=== PATIENT | female | born 1970 | race Caucasian/White ===

== ENCOUNTER 2020-04-18 12:44 | Outpatient (REF) | payer OTHER, SELFPAY ==
--- NOTE | 2020-04-18 | US_ITS ---
EXAMINATION: US THYROID CLINICAL INFORMATION: Goiter, with cervical lymph node mapping. COMPARISON: CT neck without intravenous contrast dated 05/13/2019. Ultrasound soft tissue head/neck thyroid dated 02/23/2019. TECHNIQUE: Linear transducer ibarra-scale and color Doppler examination with attention to the region of the thyroid. FINDINGS: SIZE: Measurements of the thyroid lobes and nodules are given in sagittal, anteroposterior and transverse dimensions respectively. Right Thyroid Lobe: 4.98 x 1.36 x 1.59 cm, volume 5.63 mL. Previously 5.1 x 1.4 x 1.4 cm, volume 5.2 mL. Parenchyma: The gland echotexture is homogeneous. Thyroid vascularity is normal. Left Thyroid Lobe: 5.05 x 1.14 x 1.65 cm, volume 4.96 mL. Previously 4.7 x 1.4 x 1.6 cm, volume 5.4 mL. Parenchyma: The gland echotexture is homogeneous. Thyroid vascularity is normal. Isthmus: 0.34 cm in maximum AP dimension. Previously 0.35 cm. RIGHT THYROID LOBE: There is 1 nodule seen. 1. Location: Middle. Size: 0.22 x 1.15 x 0.30 cm. Nodule characteristics: Hypoechoic and cystic, smooth margin, peripheral calcification and no intranodular flow. There is an appearance is suggestive of a colloid cyst.. ISTHMUS: No nodules. LEFT THYROID LOBE: There is 1 nodule seen. 1. Location: Superior. Size: 0.27 x 0.17 x 0.17 cm. Nodule characteristics: Hypoechoic and complex cystic, smooth margin, question calcification and no intranodular flow. NODES: No lymphadenopathy is seen in the tissue surrounding the thyroid gland. US/US thyroid IMPRESSION: Small bilateral thyroid cysts. No adenopathy is seen. .
== END 2020-04-18 12:45 | disposition home or self-care (01) ==
LOC: HO.US 12:44
PROVIDERS: PCP Internal Medicine; Visit Provider Internal Medicine
DX: E04.9 Nontoxic goiter, unspecified (principal)
CPT/HCPCS: 76536

== ENCOUNTER → 2020-05-01 10:27 | Outpatient (BNVA) | payer OTHER, SELFPAY | PROVIDERS: PCP Internal Medicine; Referring Provider Internal Medicine; Visit Provider Internal Medicine | DX: Z76.89 Persons encountering health services in other specified circumstances (principal) ==

== ENCOUNTER 2020-05-24 14:20 | Outpatient (REF) | payer OTHER, SELFPAY ==
--- NOTE | 2020-05-24 14:24 | US_ITS ---
EXAMINATION: US SOFT TISSUE OF THE NECK CLINICAL INFORMATION: Localized enlarged lymph nodes. COMPARISON: CT neck 04/18/2020. Ultrasound soft tissue head/neck thyroid dated 02/23/2019. TECHNIQUE: Limited imaging of the neck with attention to the lymph nodes was performed. FINDINGS: RIGHT NECK: 1. Level 1B lymph node measures 1.1 x 0.6 x 0.7 cm. There is normal ultrasound characteristics. 2. Level 2 lymph node measures 2.1 x 0.7 x 1.8 cm. There are normal echogenic medulla and cortex. LEFT NECK: 1. Level 1B lymph node measures 1.0 x 0.6 x 0.9 cm. It has normal ultrasound characteristics. 2. Level 2 lymph node measures 1.7 x 0.7 x 1.2 cm. It has normal ultrasound characteristics. US/US soft tiss head and/or neck IMPRESSION: Normal bilateral neck lymph nodes.
== END 2020-05-24 14:21 | disposition home or self-care (01) ==
LOC: HO.HMGCX 14:20
PROVIDERS: PCP Internal Medicine; Visit Provider Internal Medicine
DX: R59.0 Localized enlarged lymph nodes (principal)
CPT/HCPCS: 76536

== ENCOUNTER → 2020-06-21 11:38 | Outpatient (BNVA) | payer OTHER, SELFPAY | PROVIDERS: PCP Internal Medicine; Visit Provider Internal Medicine ==

== ENCOUNTER 2020-07-06 09:46 | Outpatient (REF) | payer OTHER, SELFPAY ==
[2020-07-06 11:03] LABS: MANUAL DIFF FLAG NO
[2020-07-06 11:07] LABS: Basophils Percent Auto 0.4 % (0-2); Eosinophils Absolute Auto 0.1 X10*3/uL (0.0-0.4); Eosinophils Percent Auto 1.1 % (0-4); Hematocrit 43.2 % (37-47); Hemoglobin 14.6 g/dl (12.0-16.0); Imm Gran Abs Auto 0.03 X10*3/uL (0.00-0.03); Imm Gran Pct Auto 0.4 % (0.0-0.4); Lymphocytes Absolute Auto 1.9 X10*3/uL (1.2-4.9); Lymphocytes Percent Auto 23.2 % (20-40); Mean Corpuscular HGB Conc 33.8 g/dl (31.0-35.0); Mean Corpuscular Hemoglobin 30.7 pg (27.0-33.0); Mean Corpuscular Volume 90.9 fL (80-98); Mean Platelet Volume 10.8 fL (9.4-12.3); Monocytes Absolute Auto 0.5 X10*3/uL (0.1-1.2); Neutrophils Absolute Auto 5.5 X10*3/uL (2.0-8.3); Neutrophils Percent Auto 68.9 % (45-73); Platelet Count 363 X10*3/uL (160-400); Red Blood Count 4.75 X10*6/uL (4.20-5.50); Red Cell Distribution Width 12.2 % (11.0-16.0)
[2020-07-06 11:55] LABS: Alanine Aminotransferase 17 U/L (0-31); Anion Gap 15 (12-20); Aspartate Amino Transferase 16 U/L (5-31); Blood Urea Nitrogen 21 mg/dL (9-16); Calcium 9.2 mg/dL (8.4-10.2); Carbon Dioxide 26 mmol/L (22-29); Chloride 104 mmol/L (96-108); Cholesterol 194 mg/dL; Estimated Glomerular Filt Rate > 60; Glucose Fasting 82 mg/dL (60-99); HDL Cholesterol 64 mg/dL; LDL Cholesterol Calculated 116 mg/dl; Potassium 4.7 mmol/L (3.3-5.1); Sodium 140 mmol/L (135-145); Triglycerides 74 mg/dL
== END 2020-07-06 09:47 | disposition home or self-care (01) ==
LOC: HO.HMGCLDS 09:46
PROVIDERS: PCP Internal Medicine; Visit Provider Internal Medicine
DX: Z00.01 Encounter for general adult medical examination with abnormal findings (principal); R20.0 Anesthesia of skin; R20.2 Paresthesia of skin; E55.9 Vitamin D deficiency, unspecified; R59.0 Localized enlarged lymph nodes
CPT/HCPCS: 36415; 80048; 80061; 84450; 84460; 85025

== ENCOUNTER → 2020-07-13 11:44 | Outpatient (BNVA) | payer OTHER, SELFPAY | PROVIDERS: Visit Provider Internal Medicine Gastroenterology ==

== ENCOUNTER 2020-07-13 14:24 | Emergency (ER) | payer OTHER, SELFPAY ==
[2020-07-13 14:30] VITALS: BP 117/49; PULSE 72; RESP 16; TEMP 36.8; O2SAT 99; BMI 29.2
[2020-07-13 16:20] LABS: MANUAL DIFF FLAG NO
[2020-07-13 16:21] LABS: Basophils Percent Auto 0.5 % (0-2); Eosinophils Absolute Auto 0.1 X10*3/uL (0.0-0.4); Eosinophils Percent Auto 1.2 % (0-4); Hematocrit 40.2 % (37-47); Hemoglobin 13.5 g/dl (12.0-16.0); Imm Gran Abs Auto 0.02 X10*3/uL (0.00-0.03); Imm Gran Pct Auto 0.3 % (0.0-0.4); Lymphocytes Absolute Auto 1.9 X10*3/uL (1.2-4.9); Lymphocytes Percent Auto 24.4 % (20-40); Mean Corpuscular HGB Conc 33.6 g/dl (31.0-35.0); Mean Corpuscular Hemoglobin 30.3 pg (27.0-33.0); Mean Corpuscular Volume 90.1 fL (80-98); Mean Platelet Volume 10.3 fL (9.4-12.3); Monocytes Absolute Auto 0.5 X10*3/uL (0.1-1.2); Monocytes Percent Auto 6.6 % (2-11); Neutrophils Absolute Auto 5.2 X10*3/uL (2.0-8.3); Platelet Count 342 X10*3/uL (160-400); Red Blood Count 4.46 X10*6/uL (4.20-5.50); Red Cell Distribution Width 12.4 % (11.0-16.0); White Blood Count 7.8 X10*3/uL (4.8-10.8)
[2020-07-13 16:53] LABS: Anion Gap 12 (12-20); Blood Urea Nitrogen 15 mg/dL (9-16); Calcium 9.4 mg/dL (8.4-10.2); Carbon Dioxide 28 mmol/L (22-29); Chloride 104 mmol/L (96-108); Creatinine Clr Calc Pharmacy 73.3; Estimated Glomerular Filt Rate > 60; Glucose Random 88 mg/dL (60-115); Lipase 39 U/L (8-78); Potassium 4.2 mmol/L (3.3-5.1); Sodium 140 mmol/L (135-145)
--- NOTE | 2020-07-13 17:39 | ECG_ITS ---
Test Reason : ABDOMINAL PAIN Blood Pressure : / mmHG Vent. Rate : 069 BPM Atrial Rate : 069 BPM P-R Int : 140 ms QRS Dur : 078 ms QT Int : 408 ms P-R-T Axes : 040 011 005 degrees QTc Int : 437 ms Normal sinus rhythm Low voltage QRS Borderline ECG When compared with ECG of 24-APR-2009 19:33, No significant change was found Referred By: Hattie Lanza Electronically Signed By:MAAME MILLARD MD
[2020-07-13 17:41] VITALS: BP 125/64; PULSE 68; RESP 16; O2SAT 100
--- NOTE | 2020-07-13 17:54 | ED_ITS ---
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 No vomiting, diarrhea, urinary symptoms, fevers, chills No chest pain, SOB, dizziness, diaphoresis. Related Data Home Medications Medication Instructions Recorded Confirmed cetirizine 10 mg tablet 10 mg PO BEDTIME 03/13/20 07/13/20 cholecalciferol (vitamin D3) 50 50 mcg PO DAILY 03/13/20 07/13/20 mcg (2,000 unit) tablet fluticasone propionate 50 INTRANASAL 03/13/20 07/13/20 mcg/actuation nasal spray,suspension Previous Rx's Medication Instructions Recorded arm brace #1 ea 06/29/20 meloxicam 7.5 mg tablet 7.5 mg PO DAILY #30 tab 06/29/20 omeprazole 20 mg capsule,delayed 20 mg PO BID 30 Days #60 cap 07/13/20 release simethicone 125 mg chewable tablet 125 mg PO BID-QID PRN 15 Days #60 07/13/20 tab sucralfate [Carafate] 1 g PO TID #30 tab 07/13/20 Allergies Allergy/AdvReac Type Severity Reaction Status Date / Time penicillin V Allergy Unknown anaphylaxis Verified 07/13/20 11:44 Review of Systems Review of Systems Yes all other systems are reviewed and are negative Constitutional: Reports no additional constitutional complaints, Denies body ache(s), Denies chills, Denies fever(s), Denies headache(s) and Denies weakness Eyes: Reports no additional eye complaints and Denies change in vision Reports system reviewed and no additional complaints, except as documented, Denies dizziness, Denies headache(s), Denies nasal congestion, Denies nasal discharge and Denies neck pain Cardiovascular: Reports no additional cardiovascular complaints, Denies chest pain, Denies leg edema and Denies dyspnea Respiratory: Reports no additional respiratory complaints, Denies cough and Denies dyspnea Gastrointestinal: Reports no additional gastrointestinal complaints, Reports abdominal pain, Denies diarrhea, Reports nausea and Denies vomiting Genitourinary: Reports no additional female genitourinary complaints and Denies urinary incontinence Musculoskeletal: Reports no additional musculoskeletal complaints, Denies back pain, Denies arthralgias, Denies joint swelling, Denies neck pain, Denies numbness and Denies tingling Skin/Breast: Reports system reviewed and no additional complaints, except as docu and Denies rash Reports system reviewed and no additional complaints, except as documented, Denies Abnormal speech present, Denies dizziness, Denies headache(s), Denies numbness, Denies tingling and Denies weakness Physical Exam Vital Signs: Vital Signs: Last Vital Signs Temp 98.5 F 07/13/20 20:00 Pulse 68 07/13/20 20:00 Resp 14 07/13/20 20:00 BP 120/70 07/13/20 20:00 Pulse Ox 99 07/13/20 20:00 Body Mass Index 29.2 Const: General: cooperative, healthy appearing, comfortable and no acute distress Orientation/consciousness: patient oriented x3 Limitations: no limitations HENMT: Head: Yes normal to inspection Ears: hearing grossly normal bilaterally General nose exam: Normal external nose present Face and sinus: Yes normal facial exam Mouth: Normal oral and palatal mucosa present Throat: Yes posterior oropharynx normal Eyes: General: appearance normal, both eyes and all related structures Pupils: Equal, round and reactive pupils present Neck: Neck: Yes normal visual inspection Chest: Chest palpation & inspection: normal inspection of the chest Resp: Effort & Inspection: normal respiratory effort Auscultation: clear to auscultation bilaterally Cardio: Rate: regular rate Rhythm: regular rhythm Peripheral pulses: Peripheral pulses 2+ throughout GI: Inspection: Yes normal to inspection Palpation (GI): Soft to palpation and Tenderness to palpation present (GI) (no guarding ) in the epigastrum; with no rebound tenderness Auscultation: normal bowel sounds Back/Spine/Pelvis: Thoracic/Lumbar Spine: thoracic and lumbar spine normal to inspection Skin: General skin exam: no rashes or lesions noted Neuro: General: patient oriented x3, no focal motor deficits and normal sensation to monofilament Cranial nerves: Yes Equal, round and reactive pupils present Cognition (Neuro): normal cognition Speech: No Abnormal speech present Gait exam (Neuro): Normal gait present Motor exam (neuro): 5/5 motor strength present throughout Extrem: General: Yes normal to inspection Course Course Course Narrative: 50 yo female here with epigastric pain since 4am with assoc iated nausea. On exam has some mild/mod epigastric tenderness with no rebound or guarding. Vital signs stable. Will need labs, UA, EKG. To place PIV and give PPI and GI cocktail. 1899-Patient feels much improved. Repeat abdominal exam benign. Well appearing with stable vital signs. Labs unremarkable. UA pending. 1944-UA negative. Patient reports feeling improved. Tolerating p.o.. Likely g astritis. She is already on Prilosec. Will add Carafate and have her follow-up with GI. Reviewed worrisome signs and symptoms and when to return to the emergency department. Comfortable discharge home. MDM - Abdominal Pain MDM Narrative Medical decision making narrative: cholecystitis/cholelithiasis, acs Differential Diagnosis Differential diagnosis: Likely gastritis, pancreatitis and peptic ulcer disease Medical Records Attestation: I reviewed the patient's medical records. Lab Data Attestation: I reviewed the patient's lab results. Result diagrams: 07/13/20 16:12 07/13/20 16:12 Labs: Lab Results 07/13/20 07/13/20 07/13/20 Range/Units 16:12 16:12 16:12 WBC 7.8 (4.8-10.8) X10*3/uL RBC 4.46 (4.20-5.50) X10*6/uL Hgb 13.5 (12.0-16.0) g/dl Hct 40.2 (37-47) % MCV 90.1 (80-98) fL MCH 30.3 (27.0-33.0) pg MCHC 33.6 (31.0-35.0) g/dl RDW 12.4 (11.0-16.0) % Plt Count 342 (160-400) X10*3/uL MPV 10.3 (9.4-12.3) fL Immature Gran % (Auto) 0.3 (0.0-0.4) % Neut % (Auto) 67.0 (45-73) % Lymph % (Auto) 24.4 (20-40) % [place] % (Auto) 6.6 (2-11) % Eos % (Auto) 1.2 (0-4) % Baso % (Auto) 0.5 (0-2) % Lymph # (Auto) 1.9 (1.2-4.9) X10*3/uL [place] # (Auto) 0.5 (0.1-1.2) X10*3/uL Eos # (Auto) 0.1 (0.0-0.4) X10*3/uL Baso # (Auto) 0.0 (0.0-0.2) X10*3/uL Abs Immat Gran (auto) 0.02 (0.00-0.03) X10*3/uL Absolute Neuts (auto) 5.2 (2.0-8.3) X10*3/uL Absolute Nucleated RBC 0.000 (0.0-0.012) X10*3/uL Nucleated RBC % (auto) 0.0 (0.0-0.2) /100WBC Hold Blue Top SEE NOTE Sodium 140 (135-145) mmol/L Potassium 4.2 (3.3-5.1) mmol/L Chloride 104 (96-108) mmol/L Carbon Dioxide 28 (22-29) mmol/L Anion Gap 12 (12-20) BUN 15 (9-16) mg/dL Creatinine 0.74 (0.5-1.4) mg/dL Estim Creat Clear Calc 73.3 Estimated GFR > 60 Random Glucose 88 (60-115) mg/dL Calcium 9.4 (8.4-10.2) mg/dL Total Bilirubin (0.0-1.0) mg/dL Direct Bilirubin (0.0-0.5) mg/dL AST (5-31) U/L ALT (0-31) U/L Alkaline Phosphatase (39-117) U/L Troponin I High Sens (<3.5-17.0) ng/L Total Protein (6.5-8.0) g/dL Albumin (3.5-5.0) g/dL Lipase 39 (8-78) U/L Urine Color Urine Appearance Urine pH (5.0-8.0) Ur Specific [place] (1.005-1.025) Urine Protein (NEG-TRACE) MG/DL Urine Glucose (UA) (NEG) MG/DL Urine Ketones (NEG) MG/DL Urine Blood (NEG) Urine Nitrite (NEG) Ur Leukocyte Esterase (NEG) 02/25/21 02/25/21 02/25/21 Range/Units 17:50 17:50 19:41 WBC (4.8-10.8) X10*3/uL RBC (4.20-5.50) X10*6/uL Hgb (12.0-16.0) g/dl Hct (37-47) % MCV (80-98) fL MCH (27.0-33.0) pg MCHC (31.0-35.0) g/dl RDW (11.0-16.0) % Plt Count (160-400) X10*3/uL MPV (9.4-12.3) fL Immature Gran % (Auto) (0.0-0.4) % Neut % (Auto) (45-73) % Lymph % (Auto) (20-40) % [place] % (Auto) (2-11) % Eos % (Auto) (0-4) % Baso % (Auto) (0-2) % Lymph # (Auto) (1.2-4.9) X10*3/uL [place] # (Auto) (0.1-1.2) X10*3/uL Eos # (Auto) (0.0-0.4) X10*3/uL Baso # (Auto) (0.0-0.2) X10*3/uL Abs Immat Gran (auto) (0.00-0.03) X10*3/uL Absolute Neuts (auto) (2.0-8.3) X10*3/uL Absolute Nucleated RBC (0.0-0.012) X10*3/uL Nucleated RBC % (auto) (0.0-0.2) /100WBC Hold Blue Top Sodium (135-145) mmol/L Potassium (3.3-5.1) mmol/L Chloride (96-108) mmol/L Carbon Dioxide (22-29) mmol/L Anion Gap (12-20) BUN (9-16) mg/dL Creatinine (0.5-1.4) mg/dL Estim Creat Clear Calc Estimated GFR Random Glucose (60-115) mg/dL Calcium (8.4-10.2) mg/dL Total Bilirubin 0.5 (0.0-1.0) mg/dL Direct Bilirubin 0.2 (0.0-0.5) mg/dL AST 15 (5-31) U/L ALT 15 (0-31) U/L Alkaline Phosphatase 72 (39-117) U/L Troponin I High Sens < 3.5 (<3.5-17.0) ng/L Total Protein 7.4 (6.5-8.0) g/dL Albumin 4.3 (3.5-5.0) g/dL Lipase (8-78) U/L Urine Color YELLOW Urine Appearance CLEAR Urine pH 6.0 (5.0-8.0) Ur Specific [place] >= 1.030 H (1.005-1.025) Urine Protein NEG (NEG-TRACE) MG/DL Urine Glucose (UA) NEG (NEG) MG/DL Urine Ketones NEG (NEG) MG/DL Urine Blood NEG (NEG) Urine Nitrite NEG (NEG) Ur Leukocyte Esterase NEG (NEG) ECG Data Attestation: I personally reviewed and interpreted this ECG as follows: Interpretation: NSR with rate 69, normal pr, normal qrs, normal qtc Discharge Plan Discharge Clinical Impression: Gastritis Qualifiers: Gastritis type: other gastritis Chronicity: unspecified Gastritis bleeding: without bleeding Qualified Code(s): K29.60 - Other gastritis without bleeding Patient Disposition: Home, Self-Care Instructions: Gastritis (ED) Additional Instructions: Continue your Prilosec [place] diet Follow-up with GI Prescriptions: New sucralfate [Carafate] 1 gram tablet 1 g PO TID Qty: 30 RF: 0 No Action cholecalciferol (vitamin D3) 50 mcg (2,000 unit) tablet 50 mcg PO DAILY RF: 0 fluticasone propionate 50 mcg/actuation spray,suspension intranasal RF: 0 cetirizine 10 mg tablet 10 mg PO BEDTIME RF: 0 meloxicam 7.5 mg tablet 7.5 mg PO DAILY Qty: 30 RF: 0 (DME) Wrist Brace Medium Misc See Rx Instructions .ROUTE .MEDSUPPLY Qty: 1 RF: 0 omeprazole 20 mg capsule,delayed release(DR/EC) 20 mg PO BID 30 Days Qty: 60 RF: 3 simethicone [Gas Relief (simethicone)] 125 mg tablet,chewable 125 mg PO BID-QID PRN (Reason: abdominal pain) 15 Days Qty: 60 RF: 0 Referrals: Alisha Li MD [Primary Care Provider] - 2 days Quynh Potts MD [Physician] - 2 days Interventions: ED Discharge Assessment Last Done: 07/13/20 20:31 Discharge Date/Time: 07/13/20 20:32 Print Language: Turkish [facility] Past Medical History Attestation statement: The following information was validated with the patient. Source: old records reviewed and nursing notes reviewed Medical History Anosmia Costochondritis Costochondritis, acute Goiter Hand pain, right History of COVID-19 Lumbago Numbness and tingling in right hand Vitamin D deficiency Surgical History H/O colonoscopy History of esophagogastroduodenoscopy (EGD) Hx of tubal ligation Family History Family History Father No problems noted. Mother Thyroid disease Sister AIDS (acquired immune deficiency syndrome) Sister Breast cancer Social History Social History Household Members: Spouse and Children Alcohol intake: current Alcohol intake frequency: does not drink Smoking Status: Never smoker Smoked in Last 30 Days: No Use of substances other than those prescribed or required for medical reasons: No Advance Directives: No Advance Directives Information Provided: Yes
[2020-07-13] MEDS: 0.9 % Sodium Chloride 1,000 ML 999 ML IV (17:56)
[2020-07-13] MEDS: Lidocaine HCl Viscous 2 % 15 ML SOLUTION MUCOUS MEM (17:56)
[2020-07-13] MEDS: Magnesium Hydrox/Alum Hydrox 30 ML ORAL.SUSP PO (17:56)
[2020-07-13] MEDS: Famotidine/PF 20 MG/2 ML VIAL IVPUSH (17:57)
[2020-07-13 18:00] VITALS: BP 132/66; PULSE 65; RESP 14; TEMP 36.8; O2SAT 99
[2020-07-13 18:28] LABS: Alanine Aminotransferase 15 U/L (0-31); Albumin Level 4.3 g/dL (3.5-5.0); Alkaline Phosphatase 72 U/L (39-117); Aspartate Amino Transferase 15 U/L (5-31); Bilirubin Direct 0.2 mg/dL (0.0-0.5); Bilirubin Total 0.5 mg/dL (0.0-1.0); Total Protein 7.4 g/dL (6.5-8.0)
[2020-07-13 18:33] LABS: Troponin-I High Sensitivity < 3.5 ng/L (<3.5-17.0)
[2020-07-13 19:47] LABS: Glucose Urine UA NEG (NEG); Leukocyte Esterase Urine NEG (NEG); Nitrite Urine NEG (NEG); Specific Gravity - Urine >= 1.030 (1.005-1.025); Urine Blood NEG (NEG); Urine Ketones NEG (NEG); Urine Protein NEG (NEG-TRACE)
[2020-07-13 19:48] LABS: Appearance Urine CLEAR; Color Urine YELLOW
[2020-07-13 20:00] VITALS: BP 120/70; PULSE 68; RESP 14; TEMP 36.9; O2SAT 99
== END 2020-07-13 20:32 | disposition home or self-care (01) ==
PROVIDERS: Nurse Practitioner Family; Emergency Provider Internal Medicine; PCP Internal Medicine
DX: K29.60 Other gastritis without bleeding (principal); Z86.16 Personal history of COVID-19; M54.5 Low back pain
CPT/HCPCS: 36415; 80048; 80076; 81003; 83690; 84484; 85025; 93005; 96361; 96374; 99283; 99284

== ENCOUNTER 2020-07-20 14:17 | Outpatient (REF) | payer OTHER, SELFPAY ==
[2020-07-20 14:34] LABS: FIT Int Ctl YES
[2020-07-20 14:35] LABS: FIT1 NEGATIVE (NEGATIVE); FIT2 NEGATIVE (NEGATIVE)
== END 2020-07-20 14:18 | disposition home or self-care (01) ==
LOC: HO.LNP 14:17
PROVIDERS: Visit Provider Internal Medicine
DX: R10.9 Unspecified abdominal pain (principal)
CPT/HCPCS: 82274

== ENCOUNTER 2020-08-10 09:43 | Outpatient (REF) | payer OTHER, SELFPAY ==
--- NOTE | 2020-08-10 09:46 | EMG_ITS ---
Right median and ulnar motor and sensory studies were performed. Right radial sensory study was performed and paraspinal muscles were tested. IMPRESSION: Mild right median neuropathy across carpal tunnel. MD BENITA Fishman/NIKKI / [id number]
== END 2020-08-10 09:44 | disposition home or self-care (01) ==
LOC: HO.NEURO 09:43
PROVIDERS: Visit Provider Internal Medicine
DX: M79.641 Pain in right hand (principal); R20.2 Paresthesia of skin; R20.0 Anesthesia of skin
CPT/HCPCS: 95860; 95886; 95909

== ENCOUNTER → 2020-08-14 14:39 | Outpatient (BNVA) | payer OTHER, SELFPAY | PROVIDERS: PCP Internal Medicine; Visit Provider Internal Medicine Gastroenterology ==

== ENCOUNTER 2020-09-01 13:13 | Day surgery (SDC) | payer OTHER, SELFPAY ==
[2020-08-28 14:10] VITALS: BMI 29.2
--- NOTE | 2020-08-30 14:17 | P.CONAN_ITS ---
HPI - Anesthesia Eval Consult details Narrative: 50yo F for Upper Endoscopy [facility] Active Problems Active Problems: All Active Problems (Updated 08/28/20 @ 14:06 by Myesha Appiah) Posterior auricular pain (Acute) GERD (gastroesophageal reflux disease) (Acute) Colon cancer screening (Acute) Chronic constipation (Acute) Upper abdominal pain (Acute) Headache (Acute) Dizziness (Acute) Lumbago (Acute) Costochondritis, acute (Acute) Numbness and tingling in right hand (Acute) Anosmia (Acute) Hand pain, right (Acute) History of COVID-19 (Acute) Vitamin D deficiency (Acute) Goiter (Acute) Past Medical History Medical History Anosmia Costochondritis Costochondritis, acute Goiter Hand pain, right History of COVID-19 Lumbago Numbness and tingling in right hand Vitamin D deficiency Family History Family History Father No problems noted. Mother Thyroid disease Sister AIDS (acquired immune deficiency syndrome) Sister Breast cancer Surgical History Surgical History H/O colonoscopy History of esophagogastroduodenoscopy (EGD) Hx of tubal ligation Social History Social History Household Members: Spouse and Children Smoking Status: Never smoker Meds Allergies Allergy/AdvReac Type Severity Reaction Status Date / Time penicillin V Allergy Severe anaphylaxis Verified 09/01/20 13:33 Home Medications Medication Instructions Recorded Confirmed Last Taken Type cetirizine 10 mg tablet 10 mg PO BEDTIME 03/13/20 08/28/20 Unknown History cholecalciferol (vitamin D3) 50 50 mcg PO DAILY 03/13/20 08/28/20 Unknown History mcg (2,000 unit) tablet fluticasone propionate 50 1 spray INTRANASAL DAILY 03/13/20 08/28/20 Unknown History mcg/actuation nasal spray,suspension Exam Exam Date and Time: August 30, 2020 1417 Height,Weight and Vital Signs: Height 4 ft 11 in Weight 65.7 kg Pertinent Lab Results Pertinent Lab Results: Laboratory Tests 07/13/20 07/13/20 16:12 16:12 WBC 7.8 Hgb 13.5 Hct 40.2 Plt Count 342 Sodium 140 Potassium 4.2 Chloride 104 Carbon Dioxide 28 BUN 15 Creatinine 0.74 Narrative Narrative: EKG 06/2020 Vent. Rate : 069 BPM Atrial Rate : 069 BPM P-R Int : 140 ms QRS Dur : 078 ms QT Int : 408 ms P-R-T Axes : 040 011 005 degrees QTc Int : 437 ms Normal sinus rhythm Low voltage QRS Borderline ECG When compared with ECG of 24-APR-2009 19:33, No significant change was found Assessment and Plan Assessment Anesthesia Assessment: Chart Reviewed
[2020-09-01 13:34] VITALS: BP 144/48; PULSE 77; RESP 16; TEMP 36.6; O2SAT 98
--- NOTE | 2020-09-01 14:12 | P.OP_ITS ---
Operative Note Operative Note Date of Service: 09/01/20 Narrative: Pre-op diagnosis: Abdominal pain, GERD Post-op diagnosis: other (Gastritis, healing gastric ulcer, hiatal hernia) Procedure: FLEXIBLE TRANSORAL UPPER GASTROINTESTINAL ENDOSCOPY WITH BIOPSIES Consent: Indications for the procedure and potential complications of bleeding, perforation, reaction to medications and missed diagnosis were discussed with the patient and informed consent was obtained. Instrument: Olympus GIF H 190 mid size upper endoscope Monitoring: Vital signs and clinical assessment, continuous EKG monitoring, Pulse oximetry, Carbon Dioxide monitoring and blood pressure monitoring were done throughout the procedure. Procedure: The patient was placed in the left lateral decubitis position and pre-procedure medications were administered and a bite block was placed. The endoscope was inserted into the mouth and advanced under direct vision to the third part of duodenum. A careful inspection was made as the upper endoscope was withdrawn including a retroflexed examination of the proximal stomach; Findings and interventions are described below. Findings: Larynx: Normal Esophagus: GE junction at 32 cms, small hiatal hernia 32 - 34 cms. 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 No esophagitis Stomach: Mild gastric erythema. A few 4-5 mm healing erosions in the antrum. A 5 mm healing ulcer in the pre-pyloric area - biopsied. Antral biopsies were obtained. Grade 2 flap valve on retroflexed examination of the cardia. Duodenum: Normal bulb and descending duodenum. Biopsies were obtained from 3rd part of the duodenum to check for celiac sprue. 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 Above findings were reviewed with the patient and GERD and Gastritis handouts were given in the discharge area Surgeon: Quynh Potts MD Anesthesia: MAC (Ivonne Ochoa CRNA) [employer] Instructor: Colby Ibarra Estimated blood loss (mL): 0 Pathology: other (A: SMALL BOWEL BX R/O CELIAC B: GASTRIC ULCER BX C: ANTRUM BX R/O H PYLORI D: DISTAL ESOPHAGUS BX R/O BARRETTS) Condition: stable Disposition: PACU
--- NOTE | 2020-09-01 14:12 | MHC.SHP ---
Pre-Procedural Eval Section A The patient is an INPATIENT: No Changes since office visit: Yes Patient answered all questions; No Cold of Flu in the past 2 weeks, No New Medical Problems and No Changes in Medication The History & Physical has been completed within 30 days and I have reviewed it.: Yes Section B Chief Complaint: Upper Abdominal Pain Allergies: Allergies Allergy/AdvReac Type Severity Reaction Status Date / Time penicillin V Allergy Severe anaphylaxis Verified 09/01/20 13:33 Plan I have reviewed the history and physical and performed a pertinent physical examination on my patient. No changes have occurred unless specified.
--- NOTE | 2020-09-01 14:13 | P.CONAN_ITS ---
[facility] Active Problems Active Problems: All Active Problems (Updated 08/28/20 @ 14:06 by Myesha gramajo) Posterior auricular pain (Acute) GERD (gastroesophageal reflux disease) (Acute) Colon cancer screening (Acute) Chronic constipation (Acute) Upper abdominal pain (Acute) Headache (Acute) Dizziness (Acute) Lumbago (Acute) Costochondritis, acute (Acute) Numbness and tingling in right hand (Acute) Anosmia (Acute) Hand pain, right (Acute) History of COVID-19 (Acute) Vitamin D deficiency (Acute) Goiter (Acute) Past Medical History Medical History Anosmia Costochondritis Costochondritis, acute Goiter Hand pain, right History of COVID-19 Lumbago Numbness and tingling in right hand Vitamin D deficiency Family History Family History Father No problems noted. Mother Thyroid disease Sister AIDS (acquired immune deficiency syndrome) Sister Breast cancer Surgical History Surgical History H/O colonoscopy History of esophagogastroduodenoscopy (EGD) Hx of tubal ligation Social History Social History Household Members: Spouse and Children Smoking Status: Never smoker Use of substances other than those prescribed or required for medical reasons: No Advance Directives Information Provided: No Meds Allergies Allergy/AdvReac Type Severity Reaction Status Date / Time penicillin V Allergy Severe anaphylaxis Verified 09/01/20 13:33 Active Medications: Current Medications Generic Name Dose Route Start Last Admin Trade Name Freq PRN Reason Stop Dose Admin Lactated Ringer's 1,000 mls @ 50 mls/hr 09/01/20 13:30 Lr IV .Q20H CAMPOS Home Medications Medication Instructions Recorded Confirmed Last Taken Type cetirizine 10 mg tablet 10 mg PO BEDTIME 03/13/20 08/28/20 Unknown History cholecalciferol (vitamin D3) 50 50 mcg PO DAILY 03/13/20 08/28/20 Unknown History mcg (2,000 unit) tablet fluticasone propionate 50 1 spray INTRANASAL DAILY 03/13/20 08/28/20 Unknown History mcg/actuation nasal spray,suspension Exam Exam Date and Time: September 01, 2020 1413 Height,Weight and Vital Signs: Height 4 ft 11 in Weight 65.7 kg Last Vital Signs Temp 97.9 F 09/01/20 13:34 Pulse 77 09/01/20 13:34 Resp 16 09/01/20 13:34 BP 144/48 H 09/01/20 13:34 Pulse Ox 98 09/01/20 13:34 Airway Mallampati Class: II TM Dist: >3cm Neck ROM: Full Assessment and Plan Assessment Anesthesia Assessment: Anesthesia Plan Discussed and Chart Reviewed Final Anesthetic Review NPO: Yes ASA Class: II Final Preanesthetic Review: No Changes in Pt Med Stat, Meds/Allgs Chart Reviewed, Consent Obtained/Reviewed and Anes Risks/Benef Reviewed Patient Risk: Low Procedure Risk: Low Assessment/Block/Sedation in SS: Assess/Block/Sedation-SS Anesthetic Plan Anesthetic Plan: MAC: Disposition: Standard PACU
[2020-09-01 14:34] VITALS: BP 100/64; PULSE 65; RESP 18; TEMP 36.4; O2SAT 100
[2020-09-01 14:49] VITALS: BP 120/66; PULSE 64; RESP 18; O2SAT 100
== END 2020-09-01 15:10 | disposition home or self-care (01) ==
PROVIDERS: PCP Internal Medicine; Visit Provider Internal Medicine Gastroenterology
PROC: 0DJ08ZZ Inspection of Upper Intestinal Tract, Via Natural or Artificial Opening Endoscopic (ICD-10-PCS; CPT 43235; principal; 2020-09-01 14:20)
DX: K29.50 Unspecified chronic gastritis without bleeding (principal); K21.9 Gastro-esophageal reflux disease without esophagitis; K25.9 Gastric ulcer, unspecified as acute or chronic, without hemorrhage or perforation; K31.7 Polyp of stomach and duodenum; K44.9 Diaphragmatic hernia without obstruction or gangrene; M94.0 Chondrocostal junction syndrome [Tietze]; R43.0 Anosmia; E55.9 Vitamin D deficiency, unspecified; Z79.899 Other long term (current) drug therapy; Z79.51 Long term (current) use of inhaled steroids; Z88.0 Allergy status to penicillin; Z86.16 Personal history of COVID-19
CPT/HCPCS: 43239; 88305; 88342

== ENCOUNTER 2020-09-08 13:07 | Outpatient (REF) | payer OTHER, SELFPAY ==
--- NOTE | ~2020-09-08 | CT_ITS ---
EXAMINATION: CT HEAD WITHOUT CONTRAST CLINICAL INFORMATION: Tension type headache. COMPARISON: No relevant prior imaging. TECHNIQUE: Contiguous axial imaging was performed from the skull base to vertex without intravenous administration of contrast. This CT examination was performed using dose optimization techniques as appropriate, variously including the following: *Automated exposure control *Adjustment of mA and/or kV according to patient size (this includes techniques or standardized protocols for targeted exams where dose is matched to indication/reason for exam; i.e. extremities or head) *Use of iterative reconstruction technique DLP: 704 mGy-cm FINDINGS: There is no acute intracranial hemorrhage or abnormal extra-axial collection. No intracranial mass effect or midline shift. Lateral and third ventricles are normal. No hydrocephalus. May-white matter differentiation is preserved and there is no evidence of acute atrial infarct. The calvarium and skull base are intact. Mastoid air cells and middle ear cavities are well aerated. No active paranasal sinus disease. CT/CT head/brain wo con IMPRESSION: Normal CT scan of the head.
== END 2020-09-08 13:08 | disposition home or self-care (01) ==
LOC: HO.CT 13:07
PROVIDERS: Visit Provider Internal Medicine
DX: G44.209 Tension-type headache, unspecified, not intractable (principal)
CPT/HCPCS: 70450

== ENCOUNTER 2020-12-06 11:22 | Outpatient (REF) | payer OTHER, SELFPAY ==
--- NOTE | ~2020-12-06 | US_ITS ---
EXAMINATION: US SOFT TISSUE NECK CLINICAL INFORMATION: Localized enlarged lymph nodes. COMPARISON: None TECHNIQUE: Ultrasound of the neck soft tissues is performed with high- frequency ibarra-scale imaging and color Doppler. FINDINGS: THYROID BED: Prior thyroidectomy. No residual thyroid tissue demonstrated in the thyroid bed. No cystic or solid nodules demonstrated in the thyroid bed. RIGHT NECK SOFT TISSUES: Scattered architecturally normal nodes are present. The nodes show normal fatty hilus, normal cortical thickness, and no cystic change or calcification. No abnormal color flow. The largest nodes are as follows: Level 1B: 1.9 x 0.8 x 2.0 cm. Normal junaid architecture, likely cyst. Previously it measured 2.1 x 0.7 x 1.8. LEFT NECK SOFT TISSUES: Scattered architecturally normal nodes are present. The nodes show normal fatty hilus, normal cortical thickness, and no cystic change or calcification. No abnormal color flow. The largest nodes are as follows: Level 2: 2.2 x 0.7 x 1.4 cm. Normal junaid architecture, likely cyst. Previously measured 1.7 x 0.7 x 1.2. Level 2: 0.8 x 0.5 x 1.1 cm. Normal junaid architecture. Previously it measured 1.0 x 0.6 x 0.9 cm. US/US soft tiss head and/or neck IMPRESSION: Benign-appearing bilateral neck lymph nodes.
== END 2020-12-06 11:23 | disposition home or self-care (01) ==
LOC: HO.HMGCX 11:22
PROVIDERS: PCP Internal Medicine; Visit Provider Internal Medicine
DX: R59.0 Localized enlarged lymph nodes (principal)
CPT/HCPCS: 76536

== ENCOUNTER 2020-12-08 14:05 | Outpatient (REF) | payer OTHER, SELFPAY ==
[2020-12-08 16:37] LABS: MANUAL DIFF FLAG NO
[2020-12-08 16:41] LABS: Basophils Percent Auto 0.6 % (0-2); Eosinophils Absolute Auto 0.1 X10*3/uL (0.0-0.4); Eosinophils Percent Auto 0.7 % (0-4); Hematocrit 38.8 % (37-47); Imm Gran Abs Auto 0.03 X10*3/uL (0.00-0.03); Imm Gran Pct Auto 0.4 % (0.0-0.4); Lymphocytes Absolute Auto 1.7 X10*3/uL (1.2-4.9); Lymphocytes Percent Auto 25.1 % (20-40); Mean Corpuscular HGB Conc 33.5 g/dl (31.0-35.0); Mean Corpuscular Volume 89.6 fL (80-98); Mean Platelet Volume 10.4 fL (9.4-12.3); Monocytes Absolute Auto 0.4 X10*3/uL (0.1-1.2); Monocytes Percent Auto 5.9 % (2-11); Neutrophils Absolute Auto 4.5 X10*3/uL (2.0-8.3); Neutrophils Percent Auto 67.3 % (45-73); Platelet Count 404 X10*3/uL (160-400); Red Blood Count 4.33 X10*6/uL (4.20-5.50); Red Cell Distribution Width 12.6 % (11.0-16.0); White Blood Count 6.8 X10*3/uL (4.8-10.8)
[2020-12-08 17:01] LABS: Glucose Random 82 mg/dL (60-115)
[2020-12-08 17:12] LABS: Alanine Aminotransferase 13 U/L (0-31); Albumin Level 4.4 g/dL (3.5-5.0); Alkaline Phosphatase 84 U/L (39-117); Anion Gap 13 (12-20); Aspartate Amino Transferase 16 U/L (5-31); Bilirubin Total 0.4 mg/dL (0.0-1.0); Blood Urea Nitrogen 18 mg/dL (9-16); Calcium 9.3 mg/dL (8.4-10.2); Carbon Dioxide 24 mmol/L (22-29); Chloride 106 mmol/L (96-108); Estimated Glomerular Filt Rate > 60; Glucose Random 80 mg/dL (60-115); Potassium 4.1 mmol/L (3.3-5.1); Sodium 139 mmol/L (135-145); Total Protein 7.7 g/dL (6.5-8.0)
[2020-12-08 17:29] LABS: Free T4 (Free Thyroxine) 0.86 ng/dL (0.71-1.85); Thyroid Stimulating Hormone 0.88 uIU/mL (0.32-4.0); Vitamin D 25-OH Total 22.4 ng/mL (>30)
== END 2020-12-08 14:06 | disposition home or self-care (01) ==
LOC: HO.LNP 14:05
PROVIDERS: Internal Medicine; PCP Internal Medicine; Visit Provider Hospitalist
DX: R30.0 Dysuria (principal); E16.2 Hypoglycemia, unspecified; E04.9 Nontoxic goiter, unspecified; E55.9 Vitamin D deficiency, unspecified
CPT/HCPCS: 80053; 82306; 82947; 84439; 84443; 85025; 87086

== ENCOUNTER → 2020-12-25 13:54 | Outpatient (BNVA) | payer OTHER, SELFPAY | PROVIDERS: PCP Internal Medicine; Visit Provider Internal Medicine ==

== ENCOUNTER 2021-06-05 10:45 | Outpatient (REF) | payer OTHER, SELFPAY ==
--- NOTE | ~2021-06-05 | XR_ITS ---
EXAMINATION: XR SHOULDER, RIGHT XR SHOULDER, LEFT CLINICAL INFORMATION: Shoulder pain COMPARISON: None TECHNIQUE: Each shoulder is imaged in 3 views. There are total of 6 views. FINDINGS: Both shoulders show normal bony mineralization without fracture, dislocation, destructive process. The glenohumeral joints are unremarkable. There is no joint narrowing or subchondral sclerosis. The acromioclavicular alignment is normal on each side. There are no visible rotator cuff calcifications. XR/XR shoulder RT min 2V IMPRESSION: Unremarkable bilateral shoulders.
--- NOTE | ~2021-06-05 | XR_ITS ---
EXAMINATION: XR SHOULDER, RIGHT XR SHOULDER, LEFT CLINICAL INFORMATION: Shoulder pain COMPARISON: None TECHNIQUE: Each shoulder is imaged in 3 views. There are total of 6 views. FINDINGS: Both shoulders show normal bony mineralization without fracture, dislocation, destructive process. The glenohumeral joints are unremarkable. There is no joint narrowing or subchondral sclerosis. The acromioclavicular alignment is normal on each side. There are no visible rotator cuff calcifications. XR/XR shoulder LT min 2V IMPRESSION: Unremarkable bilateral shoulders.
== END 2021-06-05 10:46 | disposition home or self-care (01) ==
LOC: HO.HMGCX 10:45
PROVIDERS: Visit Provider Internal Medicine
DX: M25.511 Pain in right shoulder (principal); M25.512 Pain in left shoulder
CPT/HCPCS: 73030

== ENCOUNTER 2021-06-06 06:30 | Outpatient (REF) | payer OTHER, SELFPAY ==
[2021-06-06 11:22] LABS: MANUAL DIFF FLAG NO
[2021-06-06 11:29] LABS: Basophils Percent Auto 0.8 % (0-2); Eosinophils Absolute Auto 0.1 X10*3/uL (0.0-0.4); Eosinophils Percent Auto 1.5 % (0-4); Hemoglobin 13.4 g/dl (12.0-16.0); Imm Gran Abs Auto 0.01 X10*3/uL (0.00-0.03); Imm Gran Pct Auto 0.2 % (0.0-0.4); Lymphocytes Absolute Auto 1.4 X10*3/uL (1.2-4.9); Lymphocytes Percent Auto 26.5 % (20-40); Mean Corpuscular HGB Conc 32.7 g/dl (31.0-35.0); Mean Corpuscular Hemoglobin 29.4 pg (27.0-33.0); Mean Corpuscular Volume 89.9 fL (80.0-98.0); Mean Platelet Volume 10.9 fL (9.4-12.3); Monocytes Absolute Auto 0.4 X10*3/uL (0.1-1.2); Monocytes Percent Auto 6.9 % (2-11); Neutrophils Absolute Auto 3.4 x10*3/uL (2.0-8.3); Neutrophils Percent Auto 64.1 % (45-73); Platelet Count 390 X10*3/uL (160-400); Red Blood Count 4.56 X10*6/uL (4.20-5.50); Red Cell Distribution Width 12.6 % (11.0-16.0); White Blood Count 5.2 X10*3/uL (4.8-10.8)
[2021-06-06 12:06] LABS: Alanine Aminotransferase 15 U/L (0-31); Anion Gap 11 (12-20); Aspartate Amino Transferase 14 U/L (5-31); Blood Urea Nitrogen 14 mg/dL (9-16); Calcium 9.9 mg/dL (8.4-10.2); Carbon Dioxide 28 mmol/L (22-29); Chloride 105 mmol/L (96-108); Cholesterol 195 mg/dL; Estimated Glomerular Filt Rate > 60; Glucose Fasting 90 mg/dL (60-99); HDL Cholesterol 56 mg/dL; LDL Cholesterol Calculated 120 mg/dl; Potassium 4.3 mmol/L (3.3-5.1); Sodium 140 mmol/L (135-145); Triglycerides 98 mg/dL
[2021-06-06 12:07] LABS: Free T4 (Free Thyroxine) 0.89 ng/dL (0.71-1.85); Thyroid Stimulating Hormone 2.65 uIU/mL (0.32-4.0); Vitamin D 25-OH Total 24.2 ng/mL (>30)
[2021-06-08 06:37] LABS: Thyroid Peroxidase Antibodies 2 IU/mL (<9)
[2021-06-08 20:55] LABS: TS Negative Control Passed; TS Panel A 0; TS Panel B 0; TS Positive Control Passed; TSpotTB Negative (Negative)
== END 2021-06-06 06:31 | disposition home or self-care (01) ==
LOC: HO.HMGCLDS 06:30
PROVIDERS: Visit Provider Internal Medicine
DX: Z00.01 Encounter for general adult medical examination with abnormal findings (principal); E04.9 Nontoxic goiter, unspecified; E03.9 Hypothyroidism, unspecified; E55.9 Vitamin D deficiency, unspecified; Z11.1 Encounter for screening for respiratory tuberculosis
CPT/HCPCS: 36415; 80048; 80061; 82306; 84439; 84443; 84450; 84460; 85025; 86376; 86481

== ENCOUNTER 2021-07-24 13:53 | Outpatient (REF) | payer OTHER, SELFPAY ==
[2021-07-25 10:06] LABS: BV Int Neg Control Negative (Negative); BV Int Pos Control Positive (Positive)
[2021-07-28 09:52] LABS: HPV mRNA E6/E7 rflx Not Detected (Not Detected)
== END 2021-07-24 13:54 | disposition home or self-care (01) ==
LOC: HO.LAB 13:53
PROVIDERS: PCP Internal Medicine; Visit Provider Advanced Practice Midwife
DX: Z01.411 Encounter for gynecological examination (general) (routine) with abnormal findings (principal); Z11.51 Encounter for screening for human papillomavirus (HPV); R30.0 Dysuria; N89.8 Other specified noninflammatory disorders of vagina
CPT/HCPCS: 87480; 87510; 87624; 87660; 88142

== ENCOUNTER 2021-08-20 14:52 | Outpatient (REF) | payer OTHER, SELFPAY ==
[2021-08-21 15:23] LABS: BV Int Neg Control Negative (Negative); BV Int Pos Control Positive (Positive)
== END 2021-08-20 14:53 | disposition home or self-care (01) ==
LOC: HO.LAB 14:52
PROVIDERS: PCP Internal Medicine; Visit Provider Advanced Practice Midwife
DX: L29.2 Pruritus vulvae (principal); R10.2 Pelvic and perineal pain; R35.0 Frequency of micturition
CPT/HCPCS: 81003; 87480; 87510; 87660; 99212

== ENCOUNTER 2021-09-10 15:13 | Outpatient (REF) | payer OTHER, SELFPAY ==
--- NOTE | ~2021-09-10 | US_ITS ---
EXAMINATION: US PELVIS CLINICAL INFORMATION: Pelvic and perineal pain. COMPARISON: None. TECHNIQUE: Ultrasound of the pelvis is performed using both transabdominal and transvaginal transducers along with Doppler. Transvaginal imaging is performed due to inadequate visualization transabdominally. FINDINGS: Uterus: The uterus is anteverted, anteflexed and measures 8.6 cm in length, 3.6 cm in AP and 4.8 cm and transverse dimension. The double wall endometrial thickness is 9 mm. The uterus is smooth in contour and has normal myometrial echogenicity. There is a small hypoechoic lesion in the posterior fundus measuring 1.1 x 1.1 x 1.4 cm suggestive of small fibroid. Adnexa: Left ovary is visualized. There is normal color flow to the left adnexa. There is no ovarian torsion. There is no pelvic ascites or fluid collection Right ovary is not visualized. Left ovary measures 2.7 x 1.7 x 1.4 cm. There is anechoic cyst measuring 1.6 x 0.6 x 0.8 cm There is a small amount of free fluid in the right adnexa US/US pelvic and transvaginal IMPRESSION: Small uterine fibroid. Otherwise the uterus is unremarkable. Free fluid in the right adnexa. There is a small left ovarian cyst.
== END 2021-09-10 15:14 | disposition home or self-care (01) ==
LOC: HO.US 15:13
PROVIDERS: Visit Provider Advanced Practice Midwife
DX: R10.2 Pelvic and perineal pain (principal)
CPT/HCPCS: 76830; 76856

== ENCOUNTER → 2021-09-28 14:27 | Outpatient (BNVA) | payer OTHER, SELFPAY | PROVIDERS: PCP Internal Medicine; Visit Provider Advanced Practice Midwife | DX: Z71.2 Person consulting for explanation of examination or test findings (principal); R10.2 Pelvic and perineal pain; N39.3 Stress incontinence (female) (male) | CPT/HCPCS: 99212 ==

== ENCOUNTER 2021-12-17 10:15 | Outpatient (REF) | payer OTHER, SELFPAY ==
[2021-12-17 16:49] LABS: CT PCR NOT DETECTED (Not Detect.); NG PCR NOT DETECTED (Not Detect.)
== END 2021-12-17 10:16 | disposition home or self-care (01) ==
LOC: HO.LAB 10:15
PROVIDERS: Visit Provider Advanced Practice Midwife
DX: Z11.3 Encounter for screening for infections with a predominantly sexual mode of transmission (principal); R10.2 Pelvic and perineal pain; N83.202 Unspecified ovarian cyst, left side
CPT/HCPCS: 87491; 87591; 99212

== ENCOUNTER 2022-01-30 12:52 | Outpatient (REF) | payer OTHER, SELFPAY ==
--- NOTE | ~2022-01-30 | US_ITS ---
EXAMINATION: US PELVIS CLINICAL INFORMATION: Pain COMPARISON: Previous pelvic ultrasound most recent August 2021 TECHNIQUE: Ultrasound of the pelvis is performed using both transabdominal and transvaginal transducers along with Doppler. Transvaginal imaging is performed due to inadequate visualization transabdominally. FINDINGS: The uterus is anteverted and measures 8.2 x 3.5 x 4.8 cm in dimension. No focal uterine lesion is seen. The previously identified small fundal fibroid is not appreciated. Endometrial thickness is normal measuring 0.4 cm. There are nabothian cysts in the cervix. The ovaries are normal. Right ovary measures 2.4 x 1.7 x 1.1 cm. The left ovary measures 1.8 x 1 x 1.2 cm. There is no fluid in the pelvis. US/US pelvic and transvaginal IMPRESSION: Unremarkable exam.
== END 2022-01-30 12:53 | disposition home or self-care (01) ==
LOC: HO.US 12:52
PROVIDERS: Visit Provider Advanced Practice Midwife
DX: R10.2 Pelvic and perineal pain (principal)
CPT/HCPCS: 76830; 76856

== ENCOUNTER → 2022-02-14 10:28 | Outpatient (BNVA) | payer OTHER, SELFPAY | PROVIDERS: PCP Internal Medicine; Visit Provider Urology | DX: Z71.2 Person consulting for explanation of examination or test findings (principal); N39.46 Mixed incontinence | CPT/HCPCS: 51798; 99202; 99212 ==

== ENCOUNTER → 2022-04-17 09:28 | Outpatient (BNVA) | payer OTHER, SELFPAY | PROVIDERS: PCP Internal Medicine; Visit Provider Urology | DX: N39.46 Mixed incontinence (principal) | CPT/HCPCS: 52000; 99212 ==

== ENCOUNTER 2022-06-06 14:17 | Outpatient (AMB) | payer OTHER, SELFPAY ==
--- NOTE | 2022-06-06 14:20 | A.OFFPC_ITS ---
Vital Signs 06/06/22 14:22 Height 4 ft 11 in Weight 145 lb BMI 29.2 BP 110/70 Blood Pressure Location Rt brachial Position Sitting Pulse 74 Pulse Source Pulse Oximeter Pulse Oximetry (%) 98 Oxygen Delivery Method Room Air Intake Visit Reasons: PE Allergies penicillin V Allergy (Severe, Verified 12/18/22 10:51) anaphylaxis Medication List - Last Reconciled 06/06/22 by Alisha Li MD cholecalciferol (vitamin D3) 50 mcg PO DAILY diclofenac sodium 1% 2 grams topical QID PRN oxybutynin chloride ER 15 mg PO DAILY Tobacco use date assessed: 06/06/22 HPI HPI Comments History of Present Illness Details 52-year-old lady here today for physical exam. She is up-to-date with her mammogram and cervical cancer screening. [facility] Medical History (Updated 02/21/23 @ 15:04 by Alisha Li MD) Chronic right hip pain Migraine Shoulder pain Lumbago Numbness and tingling in right hand Anosmia Hand pain, right Costochondritis History of COVID-19 Vitamin D deficiency Goiter Surgical History H/O colonoscopy History of esophagogastroduodenoscopy (EGD) Hx of tubal ligation Family History Father No problems noted. Mother Thyroid disease Sister AIDS (acquired immune deficiency syndrome) Sister Breast cancer Social History Household Members: Spouse and Children Housing: Apartment Alcohol intake: never Patient Tobacco Use Status: Never used Tobacco e-Cigarette/Vaping Use: Never Used service: No Current occupational status: employed Sexual orientation: Straight/Heterosexual Gender identity: Female Cognitive needs: No Hearing needs: No Vision needs: Yes Female Reproductive History Menstrual Age of Menarche: 11 Questionnaire Thrive Questionnaire Declines Thrive assessment: No Date Thrive assessed: 06/06/22 I am a: Patient What is your living situation today?: I have a steady place to live Within the past 12 months, did the food you bought not last and you didn't have the money to get more?: Never true Within the past 12 months, did you worry whether your food would run out before you got money to buy more?: Never true Do you have trouble paying for medicines?: No Do you have trouble getting transportation to medical appointments?: No Do you have trouble paying your heating and electricity bill?: No Do you have trouble taking care of your child, family member or friend?: No Do you have trouble with day-to-day activities such as bathing, preparing meals, shopping, managing finances, etc.?: No Are you currently unemployed and looking for a job?: No AUDIT C Alcohol Use Questionnaire (AUDIT-C) 1. How often do you have a drink containing alcohol?: Never 3. How often do you have six or more drinks on one occasion?: Never Total Score: 0 JD-7 AMB Questionnaire JD-7 Date JD - 7 assessed: 06/05/21 Source: Developed by Drs. Vince Weems, Jyoti Ruth, Christopher Draper and colleagues, with an educational jie from [employer]. Physical exam (Primary Care) Vital Signs: Last Vital Signs Pulse 74 06/06/22 14:22 BP 110/70 06/06/22 14:22 Pulse Ox 98 06/06/22 14:22 Oxygen Delivery Method Room Air 06/06/22 14:22 BMI result Body Mass Index 29.2 Tobacco/Smoking Status: Tobacco use Status Tobacco use date assessed 06/06/22 06/06/22 14:26 Patient Tobacco Use Status Never used Tobacco 06/06/22 14:21 e-Cigarette/Vaping Use Never Used 06/06/22 14:21 Thrive Assessment: Date of Thrive Assessment Date Thrive assessed 06/06/22 06/06/22 17:06 Assessment and Plan Assessment & Plan (1) Colon cancer screening: Comment: stool FIT test was negative in 08/2019 Code(s): Z12.11 - Encounter for screening for malignant neoplasm of colon (2) Goiter: Code(s): E04.9 - Nontoxic goiter, unspecified (3) GERD (gastroesophageal reflux disease): Comment: continue Omeprazole Code(s): K21.9 - Gastro-esophageal reflux disease without esophagitis (4) Mixed incontinence urge and stress: Code(s): N39.46 - Mixed incontinence (5) Annual visit for general adult medical examination with abnormal findings: Code(s): Z00. - Encounter for general adult medical examination with abnormal findings (6) Medial epicondylitis of right elbow: Code(s): M77.01 - Medial epicondylitis, right elbow Orders: Orders TSH reflex Free T4 06/13/22 Z00. - Encounter for general adult medical examination with abnormal findings, E55.9 - Vitamin D deficiency, unspecified, E04.9 - Nontoxic goiter, unspecified, Z78.0 - Asymptomatic menopausal state, K21.9 - Gastro-esophageal reflux disease without esophagitis Complete Blood Count Auto Diff 06/13/22 Z00. - Encounter for general adult medical examination with abnormal findings, E55.9 - Vitamin D deficiency, unspecified, E04.9 - Nontoxic goiter, unspecified, Z78.0 - Asymptomatic menopausal state, K21.9 - Gastro-esophageal reflux disease without esophagitis Basic Metabolic Panel Fasting 06/13/22 Z00. - Encounter for general adult medical examination with abnormal findings, E55.9 - Vitamin D deficiency, unspecified, E04.9 - Nontoxic goiter, unspecified, Z78.0 - Asymptomatic menopausal state, K21.9 - Gastro-esophageal reflux disease without esophagitis Vitamin D 25-OH Total 06/13/22 Z00. - Encounter for general adult medical examination with abnormal findings, E55.9 - Vitamin D deficiency, unspecified, E04.9 - Nontoxic goiter, unspecified, Z78.0 - Asymptomatic menopausal state, K21.9 - Gastro-esophageal reflux disease without esophagitis C Reactive Protein 06/13/22 M25.50 - Pain in unspecified joint Erythrocyte Sedimentation Rate 06/13/22 M25.50 - Pain in unspecified joint Thyroid Peroxidase Antibodies 06/13/22 Z00. - Encounter for general adult medical examination with abnormal findings, E55.9 - Vitamin D deficiency, unspecified, E04.9 - Nontoxic goiter, unspecified, Z78.0 - Asymptomatic menopausal state, K21.9 - Gastro-esophageal reflux disease without esophagitis Aspartate Amino Transferase 06/13/22 Z00. - Encounter for general adult medical examination with abnormal findings, E55.9 - Vitamin D deficiency, unspecified, E04.9 - Nontoxic goiter, unspecified, Z78.0 - Asymptomatic menopausal state, K21.9 - Gastro-esophageal reflux disease without esophagitis Alanine Aminotransferase 06/13/22 Z00.01 - Encounter for general adult medical examination with abnormal findings, E55.9 - Vitamin D deficiency, unspecified, E04.9 - Nontoxic goiter, unspecified, Z78.0 - Asymptomatic menopausal state, K21.9 - Gastro-esophageal reflux disease without esophagitis Lipid Panel 06/13/22 Z00.01 - Encounter for general adult medical examination with abnormal findings, E55.9 - Vitamin D deficiency, unspecified, E04.9 - N ontoxic goiter, unspecified, Z78.0 - Asymptomatic menopausal state, K21.9 - Gastro-esophageal reflux disease without esophagitis US thyroid 06/06/22 E04.9 - Nontoxic goiter, unspecified Referrals Gastroenterology Referral Z12.11 - Encounter for screening for malignant neoplasm of colon Coding Level of Care Code Est Pt Prev Care 40-64y(87252) Diagnoses Colon cancer screening Z12.11 Goiter E04.9 GERD (gastroesophageal reflux disease) K21.9 Mixed incontinence urge and stress N39.46 Annual visit for general adult medical examination with abnormal findings Z00.01 Medial epicondylitis of right elbow M77.01
[2022-06-06 14:22] VITALS: BP 110/70; PULSE 74; O2SAT 98; BMI 29.2
== END 2022-06-06 15:11 | disposition home or self-care (01) ==
LOC: HO.HMGC 14:17
PROVIDERS: PCP Internal Medicine; Visit Provider Internal Medicine
DX: Z12.11 Encounter for screening for malignant neoplasm of colon (principal); E04.9 Nontoxic goiter, unspecified; K21.9 Gastro-esophageal reflux disease without esophagitis; N39.46 Mixed incontinence; Z00.01 Encounter for general adult medical examination with abnormal findings; M77.01 Medial epicondylitis, right elbow
CPT/HCPCS: 99499

== ENCOUNTER 2022-06-13 08:32 | Outpatient (REF) | payer OTHER, SELFPAY ==
[2022-06-13 11:31] LABS: MANUAL DIFF FLAG NO
[2022-06-13 11:46] LABS: Basophils Percent Auto 0.7 % (0-2); Eosinophils Absolute Auto 0.1 X10*3/uL (0.0-0.4); Eosinophils Percent Auto 1.8 % (0-4); Hematocrit 42.8 % (37.0-47.0); Hemoglobin 14.3 g/dl (12.0-16.0); Imm Gran Abs Auto 0.01 X10*3/uL (0.00-0.03); Imm Gran Pct Auto 0.2 % (0.0-0.4); Lymphocytes Absolute Auto 1.3 X10*3/uL (1.2-4.9); Lymphocytes Percent Auto 24.3 % (20-40); Mean Corpuscular HGB Conc 33.4 g/dl (31.0-35.0); Mean Corpuscular Hemoglobin 28.9 pg (27.0-33.0); Mean Corpuscular Volume 86.6 fL (80.0-98.0); Monocytes Absolute Auto 0.3 X10*3/uL (0.1-1.2); Monocytes Percent Auto 5.4 % (2-11); Neutrophils Absolute Auto 3.7 x10*3/uL (2.0-8.3); Neutrophils Percent Auto 67.6 % (45-73); Platelet Count 376 X10*3/uL (160-400); Red Blood Count 4.94 X10*6/uL (4.20-5.50); Red Cell Distribution Width 12.7 % (11.0-16.0); White Blood Count 5.5 X10*3/uL (4.8-10.8)
[2022-06-13 12:14] LABS: Alanine Aminotransferase 19 U/L (0-31); Anion Gap 11 (12-20); Aspartate Amino Transferase 16 U/L (5-31); Blood Urea Nitrogen 19 mg/dL (9-16); C Reactive Protein 0.42 mg/dL (< or = 0.50); Carbon Dioxide 29 mmol/L (22-29); Chloride 105 mmol/L (96-108); Cholesterol 196 mg/dL; Estimated Glomerular Filt Rate > 60; Glucose Fasting 82 mg/dL (60-99); HDL Cholesterol 53 mg/dL; LDL Cholesterol Calculated 122 mg/dl; Potassium 4.2 mmol/L (3.3-5.1); Sodium 141 mmol/L (135-145); TSH reflex Free T4 2.31 uIU/mL (0.32-4.0); Triglycerides 109 mg/dL; Vitamin D 25-OH Total 31.1 ng/mL (>30)
[2022-06-13 12:25] LABS: Erythrocyte Sedimentation Rate 18 MM/HR (0-20)
[2022-06-17 14:13] LABS: Thyroid Peroxidase Antibodies 2 IU/mL (<9)
== END 2022-06-13 08:33 | disposition home or self-care (01) ==
LOC: HO.HMGCLDS 08:32
PROVIDERS: PCP Internal Medicine; Visit Provider Internal Medicine
DX: Z00.01 Encounter for general adult medical examination with abnormal findings (principal); E04.9 Nontoxic goiter, unspecified; E55.9 Vitamin D deficiency, unspecified; K21.9 Gastro-esophageal reflux disease without esophagitis; M25.50 Pain in unspecified joint; Z78.0 Asymptomatic menopausal state
CPT/HCPCS: 36415; 80048; 80061; 82306; 84443; 84450; 84460; 85025; 85652; 86140; 86376

== ENCOUNTER 2022-07-01 14:13 | Outpatient (REF) | payer OTHER, SELFPAY ==
--- NOTE | ~2022-07-01 | US_ITS ---
EXAMINATION: US THYROID CLINICAL INFORMATION: Nontoxic goiter, unspecified. COMPARISON: Ultrasound soft tissue head/neck 12/06/2020. CT soft tissue neck 05/13/2019. Thyroid ultrasound 04/18/2020 and 02/23/2019. TECHNIQUE: Linear transducer grayscale and color Doppler examination with attention to the region of the thyroid. FINDINGS: SIZE: Measurements of the thyroid lobes and nodules are given in sagittal, anteroposterior and transverse dimensions respectively. Right Thyroid Lobe: 5.0 x 1.3 x 1.5 cm, volume 5.1 mL. Previously 5.0 x 1.4 x 1.6 cm, volume 5.6 mL. Parenchyma: The gland echotexture is homogeneous. Thyroid vascularity is normal. Left Thyroid Lobe: 4.1 x 1.3 x 1.5 cm, volume 4.0 mL. Previously 5.1 x 1.1 x 1.7 cm, volume 5.0 mL. Parenchyma: The gland echotexture is homogeneous. Thyroid vascularity is normal. Isthmus: 0.3 cm in maximum AP dimension. Previously 0.3 cm. No focal thyroid nodule is seen. NODES: No lymphadenopathy is seen in the tissue surrounding the thyroid gland. US/US thyroid IMPRESSION: Unremarkable examination. Previously noted thyroid nodules are not redemonstrated. ACR TI-RADS RECOMMENDATION REFERENCE: Ultrasound-guided fine-needle aspiration, followup ultrasound, no further follow up. * TR1 (0 point) and TR2 (2 points): No FNA or follow up * TR3 (3 points): FNA if more than or equal to 2.5 cm in maximum dimension, followup ultrasound in 1, 3 and 5 years if 1.5 to 2.4 cm in maximum dimension. * TR4 (4-6 points): FNA if more than or equal to 1.5 cm in maximum dimension, followup ultrasound in 1, 2, 3 and 5 years if 1 to 1.4 cm in maximum dimension. * TR5 (more than or equal to 7 points): FNA if more than or equal to 1 cm in maximum dimension, followup ultrasound every year for 5 years if 0.5 to 0.9 cm in maximum dimension. * TR3, TR4 or TR5 nodules that are below the size threshold for follow up receive no follow up.
== END 2022-07-01 14:14 | disposition home or self-care (01) ==
LOC: HO.US 14:13
PROVIDERS: Visit Provider Internal Medicine
DX: E04.9 Nontoxic goiter, unspecified (principal)
CPT/HCPCS: 76536

== ENCOUNTER → 2022-08-05 15:27 | Outpatient (BNVA) | payer OTHER, SELFPAY | PROVIDERS: PCP Internal Medicine; Visit Provider Urology | DX: N39.46 Mixed incontinence (principal); N81.89 Other female genital prolapse; Z79.899 Other long term (current) drug therapy | CPT/HCPCS: 99212 ==

== ENCOUNTER 2022-09-05 14:03 | Outpatient (REF) | payer OTHER, SELFPAY ==
[2022-09-05 17:54] LABS: CT PCR NOT DETECTED (Not Detect.); NG PCR NOT DETECTED (Not Detect.)
[2022-09-06 08:58] LABS: BV Int Neg Control Negative (Negative); BV Int Pos Control Positive (Positive)
== END 2022-09-05 14:04 | disposition home or self-care (01) ==
LOC: HO.LAB 14:03
PROVIDERS: PCP Internal Medicine; Visit Provider Advanced Practice Midwife
DX: Z01.419 Encounter for gynecological examination (general) (routine) without abnormal findings (principal); R10.2 Pelvic and perineal pain; Z20.2 Contact with and (suspected) exposure to infections with a predominantly sexual mode of transmission
CPT/HCPCS: 0353U; 81003; 87480; 87510; 87660

== ENCOUNTER 2022-09-05 14:35 | Outpatient (REF) | payer OTHER, SELFPAY | END 2022-09-05 14:36 | disposition home or self-care (01) | LOC: HO.LNP 14:35 | PROVIDERS: Visit Provider Advanced Practice Midwife | DX: Z13.89 Encounter for screening for other disorder (principal) ==

== ENCOUNTER → 2022-10-01 13:49 | Outpatient (BNVA) | payer OTHER, SELFPAY | PROVIDERS: PCP Internal Medicine; Visit Provider Internal Medicine Gastroenterology | DX: Z12.11 Encounter for screening for malignant neoplasm of colon (principal); K21.9 Gastro-esophageal reflux disease without esophagitis; K59.09 Other constipation; R10.10 Upper abdominal pain, unspecified | CPT/HCPCS: 99212 ==

== ENCOUNTER 2022-10-02 11:10 | Outpatient (REF) | payer OTHER, SELFPAY ==
--- NOTE | ~2022-10-02 | US_ITS ---
EXAMINATION: US PELVIS CLINICAL INFORMATION: Pelvic and perineal pain. COMPARISON: None available. TECHNIQUE: Ultrasound of the pelvis is performed using both transabdominal and transvaginal transducers along with Doppler. Transvaginal imaging is performed due to inadequate visualization transabdominally. Imaging is limited by overlapping bowel gas. FINDINGS: Uterus: The uterus is anteverted and measures 7.7 x 3.4 x 4.3 cm. A 3 mm cervical calcifications noted, possibly a tiny fibroid or a sequela of prior inflammation/infection. Nabothian cysts are seen within the cervix. The double wall endometrial thickness is 0.3 mm. The uterus is smooth in contour and has normal myometrial echogenicity. No visible fibroid. Adnexa: Both ovaries are visualized. There is normal color flow to the adnexa. There is no ovarian torsion. There is no pelvic ascites or fluid collection. There is prominent left adnexal vasculature. Right ovary measures 2.4 x 1.6 x 2.4 cm, volume 4.9 mL. Left ovary measures 2.1 x 1.0 x 1.5 cm, volume 1.6 mL. US/US pelvic and transvaginal IMPRESSION: 1. No definite uterine fibroid is presently seen. 2. Nabothian cysts are seen within the cervix. 3. There is prominent left adnexal vasculature, which can be associated with pelvic congestion.
== END 2022-10-02 11:11 | disposition home or self-care (01) ==
LOC: HO.US 11:10
PROVIDERS: PCP Internal Medicine; Visit Provider Advanced Practice Midwife
DX: R10.2 Pelvic and perineal pain (principal)
CPT/HCPCS: 76830; 76856

== ENCOUNTER → 2022-10-17 09:32 | Outpatient (BNVA) | payer OTHER, SELFPAY | PROVIDERS: PCP Internal Medicine; Visit Provider Advanced Practice Midwife | DX: Z71.2 Person consulting for explanation of examination or test findings (principal); N88.8 Other specified noninflammatory disorders of cervix uteri | CPT/HCPCS: 99212 ==

== ENCOUNTER 2022-11-06 11:00 | Outpatient (RCR) | payer OTHER, SELFPAY ==
--- NOTE | 2022-09-18 13:46 | MHC.PT.EP ---
[facility] [place] Office [place] [facility] [place] [facility] [address] Abida Bedoya [address] [phone] F: [phone] F: [phone] F: [phone] F: [phone] Physical Therapy Plan of Care Date of Evaluation: Date of Surgery: Diagnosis: other female genital prolapse, mixed incontinence Assessment: 52 y/o F referred to PT with mixed incontinence. Reports PRITESH with coughing, jumping, laughing, sneezing for several years that is worsening. Also reports UUI with cold weather, running water, and walking into the bathroom. She has a hx of constipation, but states this has improved with diet changes increasing fiber and water. Lastly, she reports a hx of pelvic pain with insertion. Pt provided consent for pelvic floor assessment and will perform next visit d/t time constraints. Currently she presents with altered breathing mechanics (more accessory muscles lacking lateral and fronta expansion), poor TrA/ hip strength, and poor load transfer tests. Educated pt re urge deferment strategies. Frequency and Duration: The patient will be seen 1x/week for 8 weeks Short Term Goals: 4 weeks 1. Pt to be able to correctly activate her PFM to allow improved support to bowel and bladder. 2. Pt to be able to demonstrate diaphragmatic breathing to improve pressure exchange and intra abdominal load management. 3. Pt to be educated on bladder irritants in order to decrease UI triggers 4. Pt to be educated on behavior training to help decrease urge incontinence. [employer] Goals: 8 weeks 1. Pt to be able to correctly activate her PFM to allow improved support to bowel and bladder. 2. Pt to be able to demonstrate a pre contraction before a cough 3. Pt to be independent with her final HEP for PFM in order to help maintain gains made in therapy. Treatment Plan: Modalities to reduce pain, spasms and effusion. Manual therapy to restore motion and function. Therapeutic exercise to improve strength and flexibility. Neuromuscular re-education for posture and balance. Therapeutic activities to return to functional activities of daily living. Electronically signed by: Please sign and return to therapist. Thank you for your referral.
--- NOTE | 2022-11-27 12:18 | MHC.PT.DC ---
[facility] [place] [facility] [place] [facility] [place] [facility] [address] Abida Bedoya [address] [facility] [phone] F: [phone] F: [phone] F: [phone] F: [phone] Physical Therapy Discharge Report Diagnosis: other female genital prolapse, mixed incontinence Date of Surgery: Date of Evaluation: 09/18/22 Date of Discharge: 11/27/22 Treatments to Date: 4 Cancellations to Date: 2 No Shows to Date: 0 Discharge Status: Visit Non-compliance Discharge Summary: Pt d/c secondary to noncompliance with scheduling policy and 2 consecutive no show visits. At time of last visit, pt was I with HEP and reports that PT has been helping. Electronically signed by: Malaika Almaraz PT Please sign and return to therapist. Thank you for your referral.
== END 2022-11-27 12:18 | disposition home or self-care (01) ==
LOC: HO.PT 11:00
PROVIDERS: PCP Internal Medicine; Visit Provider Urology
DX: N39.46 Mixed incontinence (principal); N81.89 Other female genital prolapse
CPT/HCPCS: 97110; 97112; 97140; 97162

== ENCOUNTER 2022-12-06 15:28 | Outpatient (AMB) | payer OTHER, SELFPAY ==
--- NOTE | 2022-12-06 07:13 | MHC.OFFVIS ---
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 12/06/2022-- The patient is nepali-speaking female. A certified insurance coordinator was present during the visit. She states that she has noted a significant improvement since going to physical therapy. She has been compliant on the strengthening exercises. She describes breathing techniques as well as exercises that would help to strengthen her abdominal muscles and pelvic floor mushes. She has been taking her medications. Plan: Continue taking the medications and continue doing the exercises. Follow up in 6 months to see how she is doing at that time. [facility] Medical History (Updated 02/21/23 @ 15:04 by Alisha Li MD) Chronic right hip pain Migraine Shoulder pain Lumbago Numbness and tingling in right hand Anosmia Hand pain, right Costochondritis History of COVID-19 Vitamin D deficiency Goiter Surgical History H/O colonoscopy History of esophagogastroduodenoscopy (EGD) Hx of tubal ligation Family History Father No problems noted. Mother Thyroid disease Sister AIDS (acquired immune deficiency syndrome) Sister Breast cancer Social History Household Members: Spouse and Children Housing: Apartment Alcohol intake: never Patient Tobacco Use Status: Never used Tobacco e-Cigarette/Vaping Use: Never Used service: No Current occupational status: employed Sexual orientation: Straight/Heterosexual Gender identity: Female Cognitive needs: No Hearing needs: No Vision needs: Yes Female Reproductive History Menstrual Age of Menarche: 11 Review of Systems Const Reports no additional complaints Eyes Reports no additional complaints ENT Reports no additional complaints Card Denies dyspnea Resp Denies cough and Denies dyspnea GI Reports no additional complaints Reports no additional complaints Musc Reports no additional complaints Skin/Breast Denies rash and Denies unusual bruising Neuro Reports no additional complaints Psych Reports no additional complaints Endo Reports no additional complaints Gregg/Lymph Reports no additional complaints Aller/Immun Reports no additional complaints Office Procedures Post Void Residual Post Residual Void Post Void Residual (PVR): 67 [id number] Void Residual by ultrasound Results AMB Urinalysis, Automated UA Leukoctes 70 Angy/uL Last Edit by Tonja Mendieta [facility] on 12/06/22 15:52 UA Nitrite Negative Last Edit by Tonja Mendieta [facility] on 12/06/22 15:52 UA Urobilinogen 0.2 mg/dL Last Edit by Tonja Mendieta [facility] on 12/06/22 15:52 UA Protein 0 mg/dL Last Edit by Tonja Mendieta [facility] on 12/06/22 15:52 UA pH 6.0 Last Edit by Tonja Mendieta [facility] on 12/06/22 15:52 UA Blood 0 Sen/uL Last Edit by Tonja Mendieta [facility] on 12/06/22 15:52 UA Specific [place] 1.030 Last Edit by Tonja Mendieta [facility] on 12/06/22 15:52 UA Ketone Negative Last Edit by Tonja Mendieta [facility] on 12/06/22 15:52 UA Bilirubin 0 mg/dL Last Edit by Tonja Mendieta [facility] on 12/06/22 15:52 UA Glucose 0 mg/dL Last Edit by Tonja Mendieta [facility] on 12/06/22 15:52 Results Reviewed Results Reviewed: Laboratory Last Values Urine pH (Auto) 6.0 12/06/22 15:39 Specific [place] (Auto) 1.030 12/06/22 15:39 Urine Protein (Auto) 0 mg/dL 12/06/22 15:39 Glucose (UA)(Auto) 0 mg/dL 12/06/22 15:39 Urine Ketones (Auto) Negative 12/06/22 15:39 Urine Blood (Auto) 0 Sen/uL 12/06/22 15:39 Urine Nitrite (Auto) Negative 12/06/22 15:39 Urine Bilirubin (Auto) 0 mg/dL 12/06/22 15:39 Urine Urobilinogen (Auto) 0.2 mg/dL 12/06/22 15:39 Leukocyte Esterase (Auto) 70 Angy/uL 12/06/22 15:39 Assessment & Plan Assessment & Plan (1) Pelvic floor weakness: Code(s): N81.89 - Other female genital prolapse (2) Overactive bladder: Code(s): N32.81 - Overactive bladder (3) Urinary incontinence: Code(s): R32 - Unspecified urinary incontinence Plan Continue taking the medications and continue doing the exercises. Follow up in 6 months to see how she is doing at that time. Orders: Orders AMB Post Void Residual by ultrasound 12/06/22 N39.8 - Other specified disorders of urinary system AMB Urinalysis Automated 12/06/22 Z13.9 - Encounter for screening, unspecified Medications: Refilled oxybutynin chloride ER 15 mg PO DAILY 90 tabs 1RF Patient Instructions: The patient had an opportunity to ask questions regarding treatment plan. All questions were answered. Imaging, Laboratory studies and physical exam results were discussed and reviewed in detail. No major barriers to understanding were identified. The patient expressed understanding and agreement with the above treatment plan. The patient is aware they should contact our office by phone for worsening of their current condition or the appearance of new symptoms. Compliance is encouraged with any medications and followup testing that is ordered. It is a privilege to be allowed the opportunity to participate in the urologic care of your patient. If you have any questions or concerns regarding treatment for the above conditions please do not hesitate to contact me. The office telephone contact is [phone]. This note is constructed in part using voice recognition software. While every effort has been made to ensure accuracy ammonia technician errors may have been included. Yours sincerely, Nancy Dennis MD Coding Level of Care Code Est Pt Level 3 (25450) Diagnoses Pelvic floor weakness N81.89 Overactive bladder N32.81 Urinary incontinence R32 CPT Codes Post Residual Void - PVR CPT Code: 20383-Kjvp Void Residual by ultrasound ([id number])
== END 2022-12-06 16:04 | disposition home or self-care (01) ==
PROVIDERS: Visit Provider Urology
DX: N81.89 Other female genital prolapse (principal); N32.81 Overactive bladder; R32 Unspecified urinary incontinence
CPT/HCPCS: 99213

== ENCOUNTER → 2022-12-06 15:28 | Outpatient (BNVA) | payer OTHER, SELFPAY | PROVIDERS: Visit Provider Urology | DX: N32.81 Overactive bladder (principal); N81.89 Other female genital prolapse; R32 Unspecified urinary incontinence | CPT/HCPCS: 51798; 99212 ==

== ENCOUNTER 2022-12-18 10:25 | Outpatient (AMB) | payer OTHER, SELFPAY ==
--- NOTE | 2022-12-18 10:29 | AM.OFFWIN_ITS ---
Intake Vital Signs 12/18/22 10:34 Height 4 ft 11 in BP 124/70 Blood Pressure Location Lt brachial Position Sitting Pulse 85 Pulse Source Pulse Oximeter Temp 96.4 F L Temp Source Temporal Artery Scan Pulse Oximetry (%) 98 Oxygen Delivery Method Room Air Intake Visit Reasons: EST/ 1 week head/neck pain Patient Tobacco Use Status: Never used Tobacco Allergies penicillin V Allergy (Severe, Verified 12/18/22 10:51) anaphylaxis Medication List - Last Reconciled 12/18/22 by Robert Flores MD cholecalciferol (vitamin D3) 50 mcg PO DAILY diclofenac sodium 1% 2 grams topical QID PRN oxybutynin chloride ER 15 mg PO DAILY Do you need a note to return to daycare/school/sports/work: No HPI EST/ 1 week head/neck pain HPI Details 52-year-old female presents to the office for a sick visit. Patient hit her head hard against the kitchen counter. This happened 4 days ago. She did not pass out not was a any open wound. Patient complains of headaches since this morning. She has been taking Tylenol with minimal relief. No nausea or vomiting. Able to function. Patient speaks in Nepali and chief ii dispatcher was used. [facility] Medical History (Updated 12/18/22 @ 10:56 by Robert Flores MD) Anosmia Chronic right hip pain Costochondritis Costochondritis, acute Goiter Hand pain, right History of COVID-19 Lumbago Migraine Nabothian cyst Numbness and tingling in right hand Shoulder pain Vitamin D deficiency Surgical History H/O colonoscopy History of esophagogastroduodenoscopy (EGD) Hx of tubal ligation Family History Father No problems noted. Mother Thyroid disease Sister AIDS (acquired immune deficiency syndrome) Sister Breast cancer Social History Household Members: Spouse and Children Housing: Apartment Alcohol intake: never Patient Tobacco Use Status: Never used Tobacco e-Cigarette/Vaping Use: Never Used service: No Current occupational status: employed Sexual orientation: Straight/Heterosexual Gender identity: Female Cognitive needs: No Hearing needs: No Vision needs: Yes Female Reproductive History Menstrual Age of Menarche: 11 Physical Exam Vital Signs: Last Vital Signs Temp 96.4 F L 12/18/22 10:34 Pulse 85 12/18/22 10:34 BP 124/70 12/18/22 10:34 Pulse Ox 98 12/18/22 10:34 Oxygen Delivery Method Room Air 12/18/22 10:34 Const General: cooperative and healthy appearing Nutritional Appearance: well nourished Orientation/consciousness: patient oriented x3 Limitations: no limitations HEENT Other: No nystagmus Head: Yes normal to inspection Eyes General: appearance normal, both eyes and all related structures Neck Neck: Yes normal visual inspection Chest Chest palpation & inspection: normal palpation of entire chest wall Resp Effort & Inspection: normal respiratory effort Neuro General: patient oriented x3 Assessment & Plan Assessment & Plan (1) Contusion of head: Code(s): S00.93XA - Contusion of unspecified part of head, initial encounter Plan: A CT scan at this point is not appropriate. If that her symptoms of weakness, blurred vision or nausea to come back here. Meloxicam called in. Coding Level of Care Code Est Pt Level 3 (14099) Diagnoses Contusion of head S00.93XA
[2022-12-18 10:34] VITALS: BP 124/70; PULSE 85; TEMP 35.8; O2SAT 98
== END 2022-12-18 11:18 | disposition home or self-care (01) ==
PROVIDERS: PCP Internal Medicine; Visit Provider Internal Medicine
DX: S00.93XA Contusion of unspecified part of head, initial encounter (principal)
CPT/HCPCS: 99213

== ENCOUNTER 2023-03-13 12:43 | Outpatient (AMB) | payer OTHER, SELFPAY ==
--- NOTE | 2023-03-13 13:00 | A.OFFVIS_ITS ---
Intake Vital Signs 03/13/23 13:02 Height 4 ft 11 in Weight 143 lb 4.807 oz BMI 28.9 BP 117/55 L Blood Pressure Location Lt brachial Position Sitting Pulse 80 Intake Visit Reasons: 5 month follow up Intake Note: Ros presents in the office as a 5 month follow up. CC: She is not having any concerns at this time. Dietitian Chief Required: Yes Dietitian Chief Name: Tito Lester166 Allergies penicillin V Allergy (Severe, Verified 03/13/23 13:02) anaphylaxis Medication List - Last Reconciled 03/13/23 by Quynh Potts MD cholecalciferol (vitamin D3) 50 mcg PO DAILY diclofenac sodium 1% 2 grams topical QID PRN meloxicam 15 mg PO DAILY oxybutynin chloride ER 15 mg PO DAILY HPI 5 month follow up HPI Details GI clinic visit for this 52-year-old Azeri-speaking female for follow-up of GERD and to schedule a colonoscopy. Had a colonoscopy in the past ? at [facility] - normal per patient (Unable to remember when her last colon was - ? > 5 yrs ago) CHRONIC ILLNESSES:?Migraine QUINTEROS, Arthritis, thyromegaly ?LABS IN [facility] :?03/06 H&H WAS NORMAL, NORMAL CHEM PANEL AND LFTS ? 09/07/19 STOOL FIT TEST WAS NEGATIVE ?IMAGING STUDIES:?No GI imaging ?ENDOSCOPIC STUDIES:?08/2020 EGD SHOWED: ESOPHAGUS:? 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 Gastritis, healing antral erosion and a small pre-pyloric healing ulcer Plan: Patient to schedule a follow-up appointment in the GI Clinic with Quynh Potts M.D.-.None in [facility] ?TODAY'S VISIT: ? Video Lugger Pt denies abdominal pain or heartburn. Notes intermittent dysphagia to solids for the past 1 year - depending on the foods (meats, rice) Food seems to stick in the mid chest intermittently and has to drink water to help pass it down She complains of chronic constipation and has a BM twice a day Takes a powder and dissolves it in water (? Miralax for constipation) Denies black stools or blood in the stools PAST VISIT Pt denies smoking or ETOH abuse. Pt works at [employer] Has 4 sons. Patient denies major cardiac or pulmonary problems, loud snoring or sleep apnea ? Denies problems with anesthesia in the past. ? Denies being on chronic anticoagulation. ? Patient denies known family history of colon polyps, colon cancer or other GI malignancies. Sister with breast cancer ? ? ? Doing good today. ?? ? Taking Omeprazole and sucralafte and these medications are working well for her ?? ? Had an EGD and colon at [facility] 2-3 yrs ago.? Had acid and irritation in the stomach and colon was normal. ? I woke up today pretty bad, I had a lot of stomach burning. I feel like I have an upset stomach, it feels like its swollen or bloated . ? ? ? Woke up at 4 am due to above symptoms and has not been able to sleep. ? Notes 10/10 pain in the epigastrium/above the umblicus. ? Unable to walk - can barely talk since it is too uncomfortable. ? Denies fever, chills.? Has nausea yesterday and today and denies vomiting. ? Has not been able to eat. ? Pain gets worse after eating. ? Denies diarrhea or constipation.? Unsure if she is passing gas. ? Had a normal BM this morning - no change in pain with BM. Admits to taking Alleve or Excedrin almost daily for frequent migraine headaches. Has not been taking omeprazole since she ran out few weeks ago. ? Patient denies symptoms of heartburn, dysphagia, nausea, vomiting, change in appetite or weight. ? Complains of chronic constipation well managed with Metamucil. ? PAST EGD/COLONOSCOPY: She has had 2 EGD/colos in the past, 1 at [facility], 1 at [facility] ? both colonoscopies were normal per pt report ? PAST GI HISTORY BY REVIEW OF MEDICAL RECORDS: ? This is a 49-year-old female here today for initial consultation for colon cancer screening. She is referred by Mariposa Pickard NP of [facility]. ? she tells me when she takes any medications, drinks [place] juice or eats GERD Trigger foods, she feels she has lots of acid brash ? She has mid epigastric tenderness ? She has extreme nausea in the mornings upon waking ? Denies vomiting ? She was taking omeprazole in the past, however with insurance changes insurance refused to pay for ? I advised patient that I would like to try to restart her back on omeprazole, and if she has any issues with insurance to please give the office a call so we can send over another medication ? I feel it's important to get her gastroesophageal reflux disease symptoms under control ? She is unaware of GERD Triggers list, this was printed in Malaysian and Azeri and reviewed with patient today ? She has a history of constipation ? She reports she takes Metamucil for constipation management ? She feels the Metamucil works well for her constipation as long as she remembers to take it, for the most part she remembers to take it daily ? Denies straining ? Denies blood in stool/on toilet paper PFSH Medical History Chronic right hip pain Migraine Shoulder pain Lumbago Numbness and tingling in right hand Anosmia Hand pain, right Costochondritis History of COVID-19 Vitamin D deficiency Goiter Surgical History H/O colonoscopy History of esophagogastroduodenoscopy (EGD) Hx of tubal ligation Family History Father No problems noted. Mother Thyroid disease Sister AIDS (acquired immune deficiency syndrome) Sister Breast cancer Social History Household Members: Spouse and Children Housing: Apartment Alcohol intake: never Patient Tobacco Use Status: Never used Tobacco e-Cigarette/Vaping Use: Never Used service: No Current occupational status: employed Sexual orientation: Straight/Heterosexual Gender identity: Female Cognitive needs: No Hearing needs: No Vision needs: Yes Female Reproductive History Menstrual Age of Menarche: 11 Review of Systems Const All systems reviewed & are unremarkable except as noted in HPI and below Physical Exam Vital Signs: Last Vital Signs Pulse 80 03/13/23 13:02 BP 117/55 L 03/13/23 13:02 BMI result Body Mass Index 28.9 Const General: healthy appearing and no acute distress Nutritional Appearance: overweight Orientation/consciousness: patient oriented x3 Limitations: no limitations and language barrier HEENT Head: Yes normal to inspection Ears: hearing grossly normal bilaterally Eyes Sclerae: sclerae normal Pupils: Equal, round and reactive pupils present Neck Neck: Yes normal visual inspection Chest Chest palpation & inspection: normal inspection of the chest Resp Effort & Inspection: normal respiratory effort Auscultation: clear to auscultation bilaterally Cardio Palpation: normal PMI Rate: regular rate Rhythm: regular rhythm Heart sounds: S1 normal heart sound present, S2 normal heart sound present and no murmurs GI Palpation (GI): Soft to palpation, nontender and No hepatosplenomegaly present Auscultation: normal bowel sounds Rectal Exam - Female: deferred Skin General skin exam: no rashes or lesions noted Neuro General: patient oriented x3, gait normal and moves all extremities Cranial nerves: Yes Equal, round and reactive pupils present Psych Appearance: grossly normal Mental Status: mental status grossly normal Assessment & Plan Assessment & Plan (1) GERD (gastroesophageal reflux disease): Comment: continue Omeprazole Code(s): K21.9 - Gastro-esophageal reflux disease without esophagitis (2) Colon cancer screening: Comment: stool FIT test was negative in 08/2019 Code(s): Z12.11 - Encounter for screening for malignant neoplasm of colon (3) Chronic constipation: Code(s): K59.09 - Other constipation Plan 52 year old Azeri-speaking female with Migraine QUINTEROS, Arthritis, thyromegaly followed in GI for GERD and chronic constipation. 09/07/19 STOOL FIT TEST WAS NEGATIVE. GERD symptoms are controlled with omeprazole 20 mg twice daily. During her last TV, pt complained of 10/10 upper abdominal pain and was advised evaluation at [facility]. She had been taking NSAIDs daily for headaches and ran out of omeprazole a few weeks ago. Seen at the ER and symptoms improved after GI cocktail and discharged on carafate and Omeprazole 08/2020 Upper endoscopy was performed in results as noted above 10/01/22 Pt referred to GI to schedule a screening colonoscopy She complains of intermittent dysphagia to solid food. Further evaluation with upper endoscopy with possible dilation (dysphagia) and colonoscopy (screening) - scheduled 06/13/23 FU in 3 months - scheduled 07/03/23 Medications: New polyethylene glycol 3350 (Miralax) Mix Miralax with 64 oz(8 cups) of Crystal light. Take 2 tablets of Dulcolax qt 12 pm. Wait to have your 1st bowel movement, then begin drinking Miralax. Drink a glass of Miralax every 10-15 minutes until you are finished. You will drink at least another 4 cups of clear liquid of your choice over the next 2 hours. Please drink as many clear liquids as possible You may have clear liquids up to four hours before your procedure 17 grams PO DAILY 238 grams 0RF colon prep 1 day bisacodyl (Dulcolax (bisacodyl)) 10 mg (2 x 5 mg) PO BEDTIME 4 tabs 0RF colon prep 2 days Coding Level of Care Code Est Pt Level 3 (00031) Diagnoses GERD (gastroesophageal reflux disease) K21.9 Colon cancer screening Z12.11 Chronic constipation K59.09 Time Spent (min) 18
[2023-03-13 13:02] VITALS: BP 117/55; PULSE 80; BMI 28.9
== END 2023-03-13 14:11 | disposition home or self-care (01) ==
PROVIDERS: Visit Provider Internal Medicine Gastroenterology
DX: K21.9 Gastro-esophageal reflux disease without esophagitis (principal); Z12.11 Encounter for screening for malignant neoplasm of colon; K59.09 Other constipation
CPT/HCPCS: 99213

== ENCOUNTER → 2023-03-13 12:43 | Outpatient (BNVA) | payer OTHER, SELFPAY | PROVIDERS: Visit Provider Internal Medicine Gastroenterology | DX: Z12.11 Encounter for screening for malignant neoplasm of colon (principal); K21.9 Gastro-esophageal reflux disease without esophagitis; K59.09 Other constipation | CPT/HCPCS: 99212 ==

== ENCOUNTER 2023-06-13 07:38 | Day surgery (SDC) | payer OTHER, SELFPAY ==
[2023-06-11 14:10] VITALS: BMI 28.9
--- NOTE | 2023-06-12 12:09 | P.CONAN_ITS ---
Documented by User: Gem Orosco NP 06/12/23 12:10 HPI - Anesthesia Eval Consult details Narrative: 53yo F for Upper Endoscopy possible Balloon Dilitation, Colonoscopy PMFSH Active Problems Active Problems: All Active Problems (Updated 02/21/23 @ 15:04 by Alisha Li MD) Chronic right hip pain (Acute) Mixed incontinence urge and stress (Acute) Shoulder pain (Acute) GERD (gastroesophageal reflux disease) (Acute) Colon cancer screening (Acute) Chronic constipation (Acute) Headache (Acute) Dizziness (Acute) Lumbago (Acute) Costochondritis, acute (Acute) Numbness and tingling in right hand (Acute) Anosmia (Acute) Vitamin D deficiency (Acute) Goiter (Acute) Past Medical History Medical History Chronic right hip pain Migraine Shoulder pain Lumbago Numbness and tingling in right hand Anosmia Hand pain, right Costochondritis History of COVID-19 Vitamin D deficiency Goiter Family History Family History Father No problems noted. Mother Thyroid disease Sister AIDS (acquired immune deficiency syndrome) Sister Breast cancer Surgical History Surgical History H/O colonoscopy History of esophagogastroduodenoscopy (EGD) Hx of tubal ligation Social History Social History Household Members: Spouse and Children Housing: Apartment Alcohol intake: never Patient Tobacco Use Status: Never used Tobacco e-Cigarette/Vaping Use: Never Used Use of substances other than those prescribed or required for medical reasons: No Are you DNR?: No Advance Directives: No Advance Directives Information Provided: Yes service: No Current occupational status: employed Sexual orientation: Straight/Heterosexual Gender identity: Female Cognitive needs: No Hearing needs: No Vision needs: Yes Meds Allergies Allergy/AdvReac Type Severity Reaction Status Date / Time penicillin V Allergy Severe anaphylaxis Verified 03/13/23 13:02 Home Medications Medication Instructions Recorded Confirmed Last Taken Type cholecalciferol (vitamin D3) 50 50 mcg PO DAILY 03/13/20 03/13/23 Unknown History mcg (2,000 unit) tablet Exam Height,Weight and Vital Signs: Height 4 ft 11 in Weight 64.864 kg Pertinent Lab Results Pertinent Lab Results: Laboratory Tests 06/13/22 08:42 WBC 5.5 Hgb 14.3 Hct 42.8 Plt Count 376 Sodium 141 Potassium 4.2 Chloride 105 Carbon Dioxide 29 BUN 19 H Creatinine 0.83 Assessment and Plan Assessment Anesthesia Assessment: Chart Reviewed Documented by User: Irais Funes MD 06/13/23 08:29 [facility] Past Medical History Medical History Chronic right hip pain Migraine Shoulder pain Lumbago Numbness and tingling in right hand Anosmia Hand pain, right Costochondritis History of COVID-19 Vitamin D deficiency Goiter Family History Family History Father No problems noted. Mother Thyroid disease Sister AIDS (acquired immune deficiency syndrome) Sister Breast cancer Surgical History Surgical History H/O colonoscopy History of esophagogastroduodenoscopy (EGD) Hx of tubal ligation History of Problems with Anesthesia: No Social History Social History Household Members: Spouse and Children Housing: Apartment Alcohol intake: never Patient Tobacco Use Status: Never used Tobacco e-Cigarette/Vaping Use: Never Used Use of substances other than those prescribed or required for medical reasons: No Are you DNR?: No Advance Directives: No Advance Directives Information Provided: Yes service: No Current occupational status: employed Sexual orientation: Straight/Heterosexual Gender identity: Female Cognitive needs: No Hearing needs: No Vision needs: Yes Meds Allergies Allergy/AdvReac Type Severity Reaction Status Date / Time penicillin V Allergy Severe anaphylaxis Verified 03/13/23 13:02 Home Medications Medication Instructions Recorded Confirmed Last Taken Type cholecalciferol (vitamin D3) 50 50 mcg PO DAILY 03/13/20 03/13/23 Unknown History mcg (2,000 unit) tablet Exam Airway Mallampati Class: II TM Dist: >3cm Neck ROM: Full Loose/Missing/Broken Teeth: No Heart: RRR Lungs: CTA Assessment and Plan Assessment Anesthesia Assessment: Anesthesia Plan Discussed Final Anesthetic Review History of Problems with Anesthesia: No NPO: Yes ASA Class: II Final Preanesthetic Review: Meds/Allgs Chart Reviewed, Consent Obtained/Reviewed and Anes Risks/Benef Reviewed Patient Risk: Low Procedure Risk: Intermediate Anesthetic Plan Anesthetic Plan: MAC: Disposition: Standard PACU
[2023-06-13 08:05] VITALS: BMI 29.9
--- NOTE | 2023-06-13 08:06 | MHC.SHP ---
Pre-Procedural Eval Section A Date of Service: 06/13/23 The patient is an INPATIENT: No The History & Physical has been completed within 30 days and I have reviewed it.: No Section B Chief Complaint: Upper abdominal pain, unspecified, Other constipat Relevant Family History (Specify if Yes): No Relevant Social History: None Present Medications: see Short Stay Collaborative assessment Medical History: Significant History (Chronic right hip pain Migraine Shoulder pain Lumbago Numbness and tingling in right hand Anosmia Hand pain, right Costochondritis History of COVID-19 Vitamin D deficiency Goiter) History of Previous Operations: Relevant previous surgery/procedure and date(s) (History of EGD and colonoscopy) Allergies: Allergies Allergy/AdvReac Type Severity Reaction Status Date / Time penicillin V Allergy Severe anaphylaxis Verified 03/13/23 13:02 Review of Systems Sugical H&P ROS: Negative: Constitution, Cardiovascular and Respiratory and Yes, Specify: Gastrointestinal (dysphagia) Exam Surgical H&P Exam: Normal: Heart, Normal: Lungs, Normal: Extremities and Normal: Abdomen Plan Diagnosis/Plan: Unchanged I have reviewed the history and physical and performed a pertinent physical examination on my patient. No changes have occurred unless specified. Time Spent With Patient Time: Total time managing care of this patient today ____ minutes.
[2023-06-13 08:35] VITALS: BP 123/69; PULSE 77; RESP 18; TEMP 36.3; O2SAT 97
[2023-06-13] MEDS: Lactated Ringers 1,000 ML 100 ML IVCONT (08:47)
[2023-06-13] MEDS: Acetaminophen 1,000 MG/100 ML PIGGYBACK 400 MG IV (08:50)
--- NOTE | 2023-06-13 09:15 | W.PM.OPN ---
Operative Note Operative Note Date of Service: 06/13/23 Narrative: FLEXIBLE TRANSORAL UPPER GASTROINTESTINAL ENDOSCOPY WITH BIOPSIES AND ESOPHAGEAL BALLOON DILATION AND FLEXIBLE SIGMOIDOSCOPY TO 40 CMS Pre-op diagnosis: Colon cancer screening (2nd colon), GERD, dysphagia Post-op diagnosis: GERD, hiatal hernia, dysphagia, poor colon prep, diverticulosis Endoscopist:? Quynh Potts MD Anesthesia:?MAC UPPER ENDOSCOPY Consent: Indications for the procedure and potential complications of bleeding, perforation, reaction to medications and missed diagnosis were discussed with the patient and informed consent was obtained. Instrument: Olympus GIF H 190 mid size upper endoscope Monitoring: Vital signs and clinical assessment, continuous EKG monitoring, Pulse oximetry, Carbon Dioxide monitoring and blood pressure monitoring were done throughout the procedure. Procedure: The patient was placed in the left lateral decubitis position and pre-procedure medications were administered and a bite block was placed. The endoscope was inserted into the mouth and advanced under direct vision to the third part of duodenum. A careful inspection was made as the upper endoscope was withdrawn including a retroflexed examination of the proximal stomach; Findings and interventions are described below. Findings: Larynx: Normal Esophagus: Mildly tortuous esophagus with increased tertiary contractions without stricture or ring. Biopsies were obtained from proximal esophagus to check for EOE. GE junction at 32 cms, small hiatal hernia 32 - 34 cms. Irregular Z line - no Santamaria's on previous biopsies. No esophagitis Balloon dilation of the distal esophagus was performed with 19 mm (57F) CRE balloon for 60 seconds Stomach: Normal gastric mucosa. Grade 2 flap valve on retroflexed examination of the cardia. Duodenum: Normal bulb and descending duodenum Intervention: Biopsies and esophageal balloon dilation as noted above FLEXIBLE SIGMOIDOSCOPY PROCEDURE NOTE Consent: Indications for the procedure and potential complications of bleeding, perforation, reaction to medications and missed diagnosis were discussed with the patient and informed consent was obtained. Instrument: Olympus PCF H 190 L variable stiffness pediatric colonoscope Monitoring: Vital signs and clinical assessment, intermittent blood pressure monitoring, continuous EKG monitoring, Pulse oximetry and Carbon Dioxide monitoring were done throughout the procedure. Procedure: The patient was placed in the left lateral decubitis position and pre-procedure medications were administered. After a digital rectal examination of the ano-rectum, the video colonoscope was inserted into the rectum and advanced through the colon to sigmoid colon at 40 cms. It was not possible to advance further due to solid stool blocking the lumen. The colonoscope was removed and the procedure was discontinued due to poor prep Findings and interventions are described below. Procedure Difficulty: : Without difficulty Findings: Sigmoid Colon: Partially evaluated due to poor prep. Moderate diverticulosis Rectum: Partially evaluated due to poor prep. Ano-rectum: Digital rectal exam was normal Colon preparation: poor and procedure was discontinued (Pt reported she took only 1-2 glasses of the prep due to nausea. Impression and Post Procedure Diagnosis: Endoscopy Findings: ESOPHAGUS: Mildly tortuous esophagus with increased tertiary contractions without stricture or ring. Biopsies were obtained from proximal esophagus to check for EOE. GE junction at 32 cms, small hiatal hernia 32 - 34 cms. Irregular Z line - no Santamaria's on previous biopsies. No esophagitis Empiric esophageal balloon dilation was performed. Flexible sigmoidoscopy Findings: Procedure discontinued due to poor prep. Plan: Await pathology results Patient has an appointment on 07/03/23 in the GI Clinic with Quynh Potts M.D. Repeat Colonoscopy in 6 months with a 2 day prep and dulcolax 2 tablets daily starting 5 days prior to colonoscopy appointment. Above findings were reviewed with the patient and GERD handout was given in the discharge area
[2023-06-13 09:47] VITALS: BP 102/66; PULSE 84; RESP 18; TEMP 36.1; O2SAT 100
[2023-06-13 10:02] VITALS: BP 138/63; PULSE 70; RESP 16; TEMP 36.2; O2SAT 98
== END 2023-06-13 10:43 | disposition home or self-care (01) ==
PROVIDERS: PCP Internal Medicine; Visit Provider Internal Medicine Gastroenterology
PROC: (CPT 45330; principal; 2023-06-13 09:20)
DX: Z12.11 Encounter for screening for malignant neoplasm of colon (principal); K57.30 Diverticulosis of large intestine without perforation or abscess without bleeding; Z91.198 Patient's noncompliance with other medical treatment and regimen for other reason; R11.0 Nausea; K59.09 Other constipation; R10.10 Upper abdominal pain, unspecified; R13.10 Dysphagia, unspecified; K22.89 Other specified disease of esophagus; K21.9 Gastro-esophageal reflux disease without esophagitis; K44.9 Diaphragmatic hernia without obstruction or gangrene; Z88.0 Allergy status to penicillin; Z79.899 Other long term (current) drug therapy
CPT/HCPCS: 45330; 43249; 43239; 88305; C1726; J0131; J2704

== ENCOUNTER → 2023-06-13 07:38 | Outpatient (BNV) | payer OTHER, SELFPAY | PROVIDERS: PCP Internal Medicine; Visit Provider Internal Medicine Gastroenterology | DX: Z12.11 Encounter for screening for malignant neoplasm of colon (principal); K57.30 Diverticulosis of large intestine without perforation or abscess without bleeding; Z91.199 Patient's noncompliance with other medical treatment and regimen due to unspecified reason; K21.9 Gastro-esophageal reflux disease without esophagitis; R13.10 Dysphagia, unspecified | CPT/HCPCS: 43239; 43249; 45330 ==

== ENCOUNTER 2023-06-16 15:43 | Outpatient (AMB) | payer OTHER, SELFPAY ==
--- NOTE | 2023-06-16 16:14 | MHC.OFFVIS ---
Intake Intake Visit Reasons: 6 month Intake Note: Patient presents today for a 4 month follow-up on Mixed incontinence urge and stress Pelvic floor weakness: Meds- Oxybutin Allergies to Antibiotic- Penicillin Blood Thinner- None PVR- 14ml Patient stated she is doing very well, and stopped taking Oxybutinin Transit Department Clerk Required: Yes Accompanied by: Self / Same As Patient Allergies penicillin V Allergy (Severe, Verified 07/03/23 11:08) anaphylaxis Medication List - Last Reconciled 06/16/23 by Nancy Dennis MD cholecalciferol (vitamin D3) 50 mcg PO DAILY diclofenac sodium 1% 2 grams topical QID PRN mirabegron ER (Myrbetriq) 50 mg PO DAILY HPI HPI Comments History of Present Illness Details 06/16/23--Ros is a 52-year-old female who presents today to the office for a follow-up. She is followed for lower urinary tract symptoms of urgency and urinary incontinence. She is currently on oxybutynin 15 mg daily. She states the medication helps to some degree. She does complain of dry mouth. The patient is divehi-speaking female. A certified branch lending officer was present during the visit. She has been evaluated by Physical therapy. She has been compliant on the strengthening exercises. She describes breathing techniques as well as exercises that would help to strengthen her abdominal muscles and pelvic floor mushes. Plan will change anticholinergic to Myrbetriq 50 mg daily Plan: Side effects of dry mouth on oxybutynin 15 mg daily. Myrbetriq 50 mg, follow-up in 6 months [facility] Medical History (Updated 07/02/23 @ 10:27 by Mitra Tinoco) Chronic right hip pain Migraine Shoulder pain Lumbago Numbness and tingling in right hand Anosmia Hand pain, right Costochondritis History of COVID-19 Vitamin D deficiency Goiter Surgical History Hx of flexible sigmoidoscopy H/O colonoscopy History of esophagogastroduodenoscopy (EGD) Hx of tubal ligation Family History Father No problems noted. Mother Thyroid disease Sister AIDS (acquired immune deficiency syndrome) Sister Breast cancer Social History Household Members: Spouse and Children Housing: Apartment Alcohol intake: never Patient Tobacco Use Status: Never used Tobacco e-Cigarette/Vaping Use: Never Used service: No Current occupational status: employed Sexual orientation: Straight/Heterosexual Gender identity: Female Cognitive needs: No Hearing needs: No Vision needs: Yes Female Reproductive History Menstrual Age of Menarche: 11 Review of Systems Const All systems reviewed & are unremarkable except as noted in HPI and below Reports no additional complaints Eyes Reports no additional complaints ENT Reports no additional complaints Card Denies dyspnea Resp Denies cough and Denies dyspnea GI Reports no additional complaints Reports no additional complaints Musc Reports no additional complaints Skin/Breast Denies rash and Denies unusual bruising Neuro Reports no additional complaints Psych Reports no additional complaints Endo Reports no additional complaints Gregg/Lymph Reports no additional complaints Aller/Immun Reports no additional complaints Office Procedures Post Void Residual Post Residual Void Post Void Residual (PVR): 14 [id number] Void Residual by ultrasound Results AMB Urinalysis, Automated UA Leukoctes 15 Angy/uL Last Edit by Kaila Tolbertgiovana Tolbert [facility] on 06/16/23 16:24 UA Nitrite Negative Last Edit by Kaila Tolbertgiovana Tolbert [facility] on 06/16/23 16:24 UA Urobilinogen 0.2 mg/dL Last Edit by Kaila Tolbertgiovana Tolbert [facility] on 06/16/23 16:24 UA Protein 0 mg/dL Last Edit by Kaila Tolbertgoivana Tolbert [facility] on 06/16/23 16:24 UA pH 6.0 Last Edit by Kaila Tolbertgiovana Tolbert [facility] on 06/16/23 16:24 UA Blood 10 Sen/uL Last Edit by Kaila Tolbertgiovana Tolbert [facility] on 06/16/23 16:24 UA Specific [place] 1.015 Last Edit by Kaila Tolbertgiovana Tolbert [facility] on 06/16/23 16:24 UA Ketone Negative Last Edit by Kaila Tolbertgiovana Tolbert [facility] on 06/16/23 16:24 UA Bilirubin 0 mg/dL Last Edit by Kaila Tolbertgiovana Tolbert [facility] on 06/16/23 16:24 UA Glucose 0 mg/dL Last Edit by Kaila Tolbertgiovana Tolbert [facility] on 06/16/23 16:24 Results Reviewed Results Reviewed: Laboratory Last Values Urine pH (Auto) 6.0 06/16/23 16:22 Specific [place] (Auto) 1.015 06/16/23 16:22 Urine Protein (Auto) 0 mg/dL 06/16/23 16:22 Glucose (UA)(Auto) 0 mg/dL 06/16/23 16:22 Urine Ketones (Auto) Negative 06/16/23 16:22 Urine Blood (Auto) 10 Sen/uL 06/16/23 16:22 Urine Nitrite (Auto) Negative 06/16/23 16:22 Urine Bilirubin (Auto) 0 mg/dL 06/16/23 16:22 Urine Urobilinogen (Auto) 0.2 mg/dL 06/16/23 16:22 Leukocyte Esterase (Auto) 15 Angy/uL 06/16/23 16:22 Assessment & Plan Assessment & Plan (1) Pelvic floor weakness: Code(s): N81.89 - Other female genital prolapse (2) Overactive bladder: Code(s): N32.81 - Overactive bladder (3) Urinary incontinence: Code(s): R32 - Unspecified urinary incontinence Plan Side effects of dry mouth on oxybutynin 15 mg daily. Myrbetriq 50 mg, follow-up in 6 months Orders: Orders AMB Urinalysis Automated 06/16/23 R33.9 - Retention of urine, unspecified AMB Post Void Residual by ultrasound 06/16/23 R33.9 - Retention of urine, unspecified Medications: New mirabegron ER (Myrbetriq) 50 mg PO DAILY 90 tabs 1RF Discontinued oxybutynin chloride ER Discontinued Reason: Doctor's Order 15 mg PO DAILY 90 tabs 1RF Patient Instructions: The patient had an opportunity to ask questions regarding treatment plan. All questions were answered. Laboratory studies and physical exam results were discussed and reviewed in detail. No major barriers to understanding were identified. The patient expressed understanding and agreement with the above treatment plan. The patient is aware they should contact our office by phone for worsening of their current condition or the appearance of new symptoms. Compliance is encouraged with any medications and followup testing that is ordered. It is a privilege to be allowed the opportunity to participate in the urologic care of your patient. If you have any questions or concerns regarding treatment for the above conditions please do not hesitate to contact me. The office telephone contact is [phone]. This note is constructed in part using voice recognition software. While every effort has been made to ensure accuracy radio sportscaster errors may have been included. Yours sincerely, Nancy Dennis MD Coding Level of Care Code Est Pt Level 4 (31155) Diagnoses Pelvic floor weakness N81.89 Overactive bladder N32.81 Urinary incontinence R32 CPT Codes Post Residual Void - PVR CPT Code: 28228-Vonq Void Residual by ultrasound ([id number])
== END 2023-06-16 16:26 | disposition home or self-care (01) ==
PROVIDERS: PCP Internal Medicine; Visit Provider Urology
DX: N81.89 Other female genital prolapse (principal); N32.81 Overactive bladder; R32 Unspecified urinary incontinence
CPT/HCPCS: 99214

== ENCOUNTER → 2023-06-16 15:43 | Outpatient (BNVA) | payer OTHER, SELFPAY | PROVIDERS: PCP Internal Medicine; Visit Provider Urology | DX: N81.89 Other female genital prolapse (principal); N32.81 Overactive bladder; R32 Unspecified urinary incontinence | CPT/HCPCS: 51798; 81003; 99212 ==

== ENCOUNTER 2023-07-03 11:00 | Outpatient (AMB) | payer OTHER, SELFPAY ==
--- NOTE | 2023-07-03 11:08 | MHC.OFFVIS ---
Intake Vital Signs 07/03/23 11:13 Height 4 ft 11 in Weight 145 lb BMI 29.3 BP 112/63 Blood Pressure Location Lt brachial Position Sitting Pulse 91 Intake Visit Reasons: S/P [place], EGD with poss. dil.; [place] Intake Note: Patient follow up for EGD and Sigmoidoscopy flexible results. Patient cc: abdominal burning sensation, constipation ad chronic headaches. Denies any other GI issues. Mender Hand Required: No Mender Hand Name: [facility] Interpeter Accompanied by: Self / Same As Patient Allergies penicillin V Allergy (Severe, Verified 07/03/23 11:08) anaphylaxis Medication List - Last Reconciled 07/03/23 by Quynh Potts MD cholecalciferol (vitamin D3) 50 mcg PO DAILY diclofenac sodium 1% 2 grams topical QID PRN mirabegron ER (Myrbetriq) 50 mg PO DAILY HPI S/P [place], EGD with possJose Elias hill; [place] HPI Details GI clinic visit for this 53-year-old Thai-speaking female for follow-up of GERD and to reschedule a colonoscopy. Had a colonoscopy in the past ? at [facility] - normal per patient (Unable to remember when her last colon was - ? > 5 yrs ago) CHRONIC ILLNESSES:?Migraine QUINTEROS, Arthritis, thyromegaly ?LABS IN [facility] :?03/06 H&H WAS NORMAL, NORMAL CHEM PANEL AND LFTS ? 09/07/19 STOOL FIT TEST WAS NEGATIVE ?IMAGING STUDIES:?No GI imaging ?ENDOSCOPIC STUDIES:?06/13/23 EGD AND FLEXIBLE SIGMOIDOSCOPY WERE PERFORMED: Endoscopy Findings: ESOPHAGUS: Mildly tortuous esophagus with increased tertiary contractions without stricture or ring. Biopsies were obtained from proximal esophagus to check for EOE. GE junction at 32 cms, small hiatal hernia 32 - 34 cms. Irregular Z line - no Santamaria's on previous biopsies. No esophagitis Empiric esophageal balloon dilation was performed. Flexible sigmoidoscopy Findings: Procedure discontinued due to poor prep. Plan: Patient has an appointment on 07/03/23 in the GI Clinic with Quynh Potts M.D. Repeat Colonoscopy in 6 months with a 2 day prep and dulcolax 2 tablets daily starting 5 days prior to colonoscopy appointment. BIOPSIES SHOWED: Esophagus, proximal, biopsy: Squamous epithelium within normal limits; no inflammation seen; negative for eosinophilic esophagitis. 08/2020 EGD SHOWED: ESOPHAGUS:? 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 Gastritis, healing antral erosion and a small pre-pyloric healing ulcer Plan: Patient to schedule a follow-up appointment in the GI Clinic with Quynh Potts M.D.-.None in [facility] ?TODAY'S VISIT: ? 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 Taking medications for constipation and having a BM daily She was having bad QUINTEROS's. Patient cc: abdominal burning sensation, constipation ad chronic headaches. Denies any other GI issues. Pt denies abdominal pain or heartburn. Notes intermittent dysphagia to solids for the past 1 year - depending on the foods (meats, rice) Food seems to stick in the mid chest intermittently and has to drink water to help pass it down She complains of chronic constipation and has a BM twice a day Takes a powder and dissolves it in water (? Miralax for constipation) Denies black stools or blood in the stools PAST VISIT Pt denies smoking or ETOH abuse. Pt works at [employer] Has 4 sons. Patient denies major cardiac or pulmonary problems, loud snoring or sleep apnea ? Denies problems with anesthesia in the past. ? Denies being on chronic anticoagulation. ? Patient denies known family history of colon polyps, colon cancer or other GI malignancies. Sister with breast cancer ? ? ? Doing good today. ?? ? Taking Omeprazole and sucralafte and these medications are working well for her ?? ? Had an EGD and colon at [facility] 2-3 yrs ago.? Had acid and irritation in the stomach and colon was normal. ? I woke up today pretty bad, I had a lot of stomach burning. I feel like I have an upset stomach, it feels like its swollen or bloated . ? ? ? Woke up at 4 am due to above symptoms and has not been able to sleep. ? Notes 10/10 pain in the epigastrium/above the umblicus. ? Unable to walk - can barely talk since it is too uncomfortable. ? Denies fever, chills.? Has nausea yesterday and today and denies vomiting. ? Has not been able to eat. ? Pain gets worse after eating. ? Denies diarrhea or constipation.? Unsure if she is passing gas. ? Had a normal BM this morning - no change in pain with BM. Admits to taking Alleve or Excedrin almost daily for frequent migraine headaches. Has not been taking omeprazole since she ran out few weeks ago. ? Patient denies symptoms of heartburn, dysphagia, nausea, vomiting, change in appetite or weight. ? Complains of chronic constipation well managed with Metamucil. ? PAST EGD/COLONOSCOPY: She has had 2 EGD/colos in the past, 1 at [facility], 1 at [facility] ? both colonoscopies were normal per pt report ? PAST GI HISTORY BY REVIEW OF MEDICAL RECORDS: ? This is a 49-year-old female here today for initial consultation for colon cancer screening. She is referred by Mariposa Pickard NP of [facility]. ? she tells me when she takes any medications, drinks [place] juice or eats GERD Trigger foods, she feels she has lots of acid brash ? She has mid epigastric tenderness ? She has extreme nausea in the mornings upon waking ? Denies vomiting ? She was taking omeprazole in the past, however with insurance changes insurance refused to pay for ? I advised patient that I would like to try to restart her back on omeprazole, and if she has any issues with insurance to please give the office a call so we can send over another medication ? I feel it's important to get her gastroesophageal reflux disease symptoms under control ? She is unaware of GERD Triggers list, this was printed in Sami and Thai and reviewed with patient today ? She has a history of constipation ? She reports she takes Metamucil for constipation management ? She feels the Metamucil works well for her constipation as long as she remembers to take it, for the most part she remembers to take it daily ? Denies straining ? Denies blood in stool/on toilet paper [facility] Medical History (Updated 07/02/23 @ 10:27 by Mitra Tinoco) Chronic right hip pain Migraine Shoulder pain Lumbago Numbness and tingling in right hand Anosmia Hand pain, right Costochondritis History of COVID-19 Vitamin D deficiency Goiter Surgical History Hx of flexible sigmoidoscopy H/O colonoscopy History of esophagogastroduodenoscopy (EGD) Hx of tubal ligation Family History Father No problems noted. Mother Thyroid disease Sister AIDS (acquired immune deficiency syndrome) Sister Breast cancer Social History Household Members: Spouse and Children Housing: Apartment Alcohol intake: never Patient Tobacco Use Status: Never used Tobacco e-Cigarette/Vaping Use: Never Used service: No Current occupational status: employed Sexual orientation: Straight/Heterosexual Gender identity: Female Cognitive needs: No Hearing needs: No Vision needs: Yes Female Reproductive History Menstrual Age of Menarche: 11 Review of Systems Const All systems reviewed & are unremarkable except as noted in HPI and below Physical Exam Vital Signs: Last Vital Signs Pulse 91 07/03/23 11:13 BP 112/63 07/03/23 11:13 BMI result Body Mass Index 29.3 Const General: healthy appearing and no acute distress Nutritional Appearance: overweight Orientation/consciousness: patient oriented x3 Limitations: no limitations and language barrier HEENT Head: Yes normal to inspection Ears: hearing grossly normal bilaterally Eyes Sclerae: sclerae normal Pupils: Equal, round and reactive pupils present Neck Neck: Yes normal visual inspection Chest Chest palpation & inspection: normal inspection of the chest Resp Effort & Inspection: normal respiratory effort Auscultation: clear to auscultation bilaterally Cardio Palpation: normal PMI Rate: regular rate Rhythm: regular rhythm Heart sounds: S1 normal heart sound present, S2 normal heart sound present and no murmurs GI Palpation (GI): Soft to palpation, nontender and No hepatosplenomegaly present Auscultation: normal bowel sounds Rectal Exam - Female: deferred Skin General skin exam: no rashes or lesions noted Neuro General: patient oriented x3, gait normal and moves all extremities Cranial nerves: Yes Equal, round and reactive pupils present Psych Appearance: grossly normal Mental Status: mental status grossly normal Assessment & Plan Assessment & Plan (1) GERD (gastroesophageal reflux disease): Comment: continue Omeprazole Code(s): K21.9 - Gastro-esophageal reflux disease without esophagitis (2) Colon cancer screening: Comment: stool FIT test was negative in 08/2019 Code(s): Z12.11 - Encounter for screening for malignant neoplasm of colon (3) Chronic constipation: Code(s): K59.09 - Other constipation (4) Vitamin D deficiency: Code(s): E55.9 - Vitamin D deficiency, unspecified Plan 53 year old Thai-speaking female with Migraine QUINTEROS, Arthritis, thyromegaly followed in GI for GERD and chronic constipation. 09/07/19 STOOL FIT TEST WAS NEGATIVE. GERD symptoms are controlled with omeprazole 20 mg twice daily. During her last TV, pt complained of 10/10 upper abdominal pain and was advised evaluation at [facility] ED. She had been taking NSAIDs daily for headaches and ran out of omeprazole a few weeks ago. Seen at the ER and symptoms improved after GI cocktail and discharged on carafate and Omeprazole 08/2020 Upper endoscopy was performed in results as noted above 10/01/22 Pt referred to GI to schedule a screening colonoscopy She complains of intermittent dysphagia to solid food. 06/13/23 EGD with dilation (dysphagia) and flexible sigmoidoscopy was performed and results as noted above. 07/03/23 Pt will be re-scheduled for colonoscopy due to suboptimal prep - scheduled 12/01/23. She was advised to take Dulcolax 2 tablets daily starting 5 days before colonoscopy appointment. Patient prefers to take the GoLYTELY prep that was sent to her pharmacy. FU in 6 months. Medications: New peg 3350-electrolytes 236-22.74-6.74 -5.86 gram (Golytely) until fecal effluent is clear; do not exceed a total volume or0781 mL Please follow instructions 240 mL PO Q10M 4,000 mL 0RF 1 day sennosides-docusate sodium 8.6-50 mg (Senna with Docusate Sodium) Please take every day at bedtime 1 tab-cap PO BEDTIME 60 tabs 2RF 60 days bisacodyl (Dulcolax (bisacodyl)) Take 2 tablets at 12 pm the day before colonoscopy 10 mg (2 x 5 mg) PO ONCE 10 tabs 0RF colon prep 5 days Coding Level of Care Code Est Pt Level 4 (66599) Diagnoses GERD (gastroesophageal reflux disease) K21.9 Colon cancer screening Z12.11 Chronic constipation K59.09 Vitamin D deficiency E55.9 Time Spent (min) 21
[2023-07-03 11:13] VITALS: BP 112/63; PULSE 91; BMI 29.3
== END 2023-07-03 12:00 | disposition home or self-care (01) ==
PROVIDERS: PCP Internal Medicine; Visit Provider Internal Medicine Gastroenterology
DX: K21.9 Gastro-esophageal reflux disease without esophagitis (principal); Z12.11 Encounter for screening for malignant neoplasm of colon; K59.09 Other constipation; E55.9 Vitamin D deficiency, unspecified
CPT/HCPCS: 99214

== ENCOUNTER → 2023-07-03 11:00 | Outpatient (BNVA) | payer OTHER, SELFPAY | PROVIDERS: PCP Internal Medicine; Visit Provider Internal Medicine Gastroenterology | DX: Z12.11 Encounter for screening for malignant neoplasm of colon (principal); K21.9 Gastro-esophageal reflux disease without esophagitis; K59.09 Other constipation; K55.9 Vascular disorder of intestine, unspecified | CPT/HCPCS: 99212 ==

== ENCOUNTER 2023-09-10 09:53 | Outpatient (AMB) | payer OTHER, SELFPAY ==
--- NOTE | 2023-09-10 09:57 | MHC.OFFVIS ---
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 She is doing well with no concerns. Attempting to eat a healthy diet with calcium and vitamin D and stays active with exercise. Currently sexually active with a long-term partner. Denies any vaginal dryness or irritation. STI testing offered; she declines. Last pap smear; 2021. Last mammogram; 2022, current 2023, no report from [facility] not on file, she reports was normal. Colonoscopy is UTD. Denies any family history of ovarian or colon cancer. FH breast cancer-sister. [facility] Medical History Chronic right hip pain Migraine Shoulder pain Lumbago Numbness and tingling in right hand Anosmia Hand pain, right Costochondritis History of COVID-19 Vitamin D deficiency Goiter Surgical History Hx of flexible sigmoidoscopy H/O colonoscopy History of esophagogastroduodenoscopy (EGD) Hx of tubal ligation Family History Father No problems noted. Mother Thyroid disease Sister AIDS (acquired immune deficiency syndrome) Sister Breast cancer Social History Household Members: Spouse and Children Housing: Apartment Alcohol intake: never Patient Tobacco Use Status: Never used Tobacco e-Cigarette/Vaping Use: Never Used service: No Current occupational status: employed Sexual orientation: Straight/Heterosexual Gender identity: Female Cognitive needs: No Hearing needs: No Vision needs: Yes Female Reproductive History Menstrual Age of Menarche: 11 control method: permanent sterilization Permanent Sterilization: BTL Total pregnancies: 4 Full term: 4 Number of Living Children: 4 Date of last pap smear: 07/24/21 (neg pap and hpv) Date of Mammogram: 08/08/22 (Birad 1) Review of Systems Const All systems reviewed & are unremarkable except as noted in HPI and below Reports as per HPI Eyes Reports no additional complaints ENT Reports no additional complaints Card Reports no additional complaints Resp Reports no additional complaints GI Reports as per HPI and Reports no additional complaints Reports as per HPI Musc Reports no additional complaints Skin/Breast Reports as per HPI Neuro Reports no additional complaints Psych Reports no additional complaints Endo Reports no additional complaints Gregg/Lymph Reports no additional complaints Aller/Immun Reports no additional complaints Physical Exam Vital Signs: Last Vital Signs BP 100/78 09/10/23 09:58 BMI result Body Mass Index 29.5 Const General: cooperative, healthy appearing, no acute distress, well developed and alert Orientation/consciousness: patient oriented x3 HEENT Head: Yes normal to inspection Eyes General: appearance normal, both eyes and all related structures Neck Neck: Yes normal visual inspection Thyroid: Thyroid normal Chest Chest palpation & inspection: normal inspection of the chest and other (no puckering, dimpling, peau de orange, retraction, discharge, masses) Breast/axilla inspection: normal inspection of the breasts Breast/axilla palpation: normal palpation of the breasts Resp Effort & Inspection: normal respiratory effort GI Inspection: Yes normal to inspection Palpation (GI): Soft to palpation Rectal Exam - Female: deferred General: Yes bladder normal to palpation External Female Exam: normal external appearance and normal appearance of the urethra Speculum Exam - Vagina: normal appearance of the vagina, normal palpation and normal vaginal discharge Speculum Exam - Cervix: normal appearance of the cervix and normal palpation Bimanual exam- vagina & uterus: normal bimanual exam, normal palpation, uterine size normal, bladder normal to palpation, normal palpation and non-tender Bimanual Exam- Adnexa, other: no masses Skin General skin exam: no rashes or lesions noted Rashes: no rashes Neuro General: patient oriented x3 Cognition (Neuro): normal cognition Extrem General: Yes normal to inspection Psych Attitude: cooperative Thought process: Normal thought process present Assessment & Plan Assessment & Plan (1) Encounter for well woman exam with routine gynecological exam: Code(s): Z01.419 - Encounter for gynecological examination (general) (routine) without abnormal findings Plan Discussed: Current recommendations for pap smears per ASCCP guidelines. Breast awareness, periodic self breast exams and yearly mammogram. Maintain a healthy lifestyle, well balanced diet including Calcium 1,200 mg and Vitamin D 600 IU daily, and routine exercise. Contact the office with any postmenopausal bleeding. Patient verbalizes understanding and agrees to the plan of care. She was given opportunity to ask questions and all questions were answered to the best of my ability. 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 This note is constructed using voice recognition software. While every effort has been made to ensure accuracy, supervisor data processing errors may have been included. Coding Level of Care Code Est Pt Prev Care 40-64y(33799) Diagnoses Encounter for well woman exam with routine gynecological exam Z01.419
[2023-09-10 09:58] VITALS: BP 100/78; BMI 29.5
== END 2023-09-10 10:26 | disposition home or self-care (01) ==
LOC: HO.HWS 09:53
PROVIDERS: PCP Internal Medicine; Visit Provider Advanced Practice Midwife
DX: Z01.419 Encounter for gynecological examination (general) (routine) without abnormal findings (principal)
CPT/HCPCS: 99396

== ENCOUNTER → 2023-09-10 09:53 | Outpatient (BNVA) | payer OTHER, SELFPAY | PROVIDERS: PCP Internal Medicine; Visit Provider Advanced Practice Midwife | DX: Z01.419 Encounter for gynecological examination (general) (routine) without abnormal findings (principal) | CPT/HCPCS: 99396 ==

== ENCOUNTER → 2023-11-10 09:51 | Outpatient (BNVA) | payer OTHER, SELFPAY | PROVIDERS: PCP Internal Medicine; Visit Provider Physician Assistant Medical | DX: R21 Rash and other nonspecific skin eruption (principal) | CPT/HCPCS: 99203 ==

== ENCOUNTER → 2023-11-17 11:39 | Outpatient (BNVA) | payer SELFPAY | PROVIDERS: PCP Internal Medicine; Visit Provider Physician Assistant Medical | DX: B02.9 Zoster without complications (principal) | CPT/HCPCS: 99213 ==

== ENCOUNTER 2023-11-26 09:31 | Outpatient (REF) | payer OTHER, SELFPAY ==
[2023-11-26 10:16] LABS: Basophils Absolute Auto 0.1 X10*3/uL (0.0-0.2); Basophils Percent Auto 0.8 % (0-2); Eosinophils Absolute Auto 0.2 X10*3/uL (0.0-0.4); Eosinophils Percent Auto 2.6 % (0-4); Hematocrit 41.8 % (37.0-47.0); Hemoglobin 14.1 g/dl (12.0-16.0); Imm Gran Abs Auto 0.02 X10*3/uL (0.00-0.03); Imm Gran Pct Auto 0.3 % (0.0-0.4); Lymphocytes Absolute Auto 1.2 X10*3/uL (1.2-4.9); Lymphocytes Percent Auto 19.9 % (20-40); MANUAL DIFF FLAG NO; Mean Corpuscular HGB Conc 33.7 g/dl (31.0-35.0); Mean Corpuscular Hemoglobin 29.6 pg (27.0-33.0); Mean Corpuscular Volume 87.8 fL (80.0-98.0); Mean Platelet Volume 9.8 fL (9.4-12.3); Monocytes Absolute Auto 0.4 X10*3/uL (0.1-1.2); Monocytes Percent Auto 5.8 % (2-11); Neutrophils Absolute Auto 4.4 x10*3/uL (2.0-8.3); Neutrophils Percent Auto 70.6 % (45-73); Platelet Count 395 X10*3/uL (160-400); Red Blood Count 4.76 X10*6/uL (4.20-5.50); Red Cell Distribution Width 13.2 % (11.0-16.0); White Blood Count 6.2 X10*3/uL (4.8-10.8)
[2023-11-26 10:54] LABS: Alanine Aminotransferase 18 U/L (0-31); Albumin Level 4.3 g/dL (3.5-5.0); Alkaline Phosphatase 98 U/L (39-117); Anion Gap 11 (12-20); Aspartate Amino Transferase 15 U/L (5-31); Bilirubin Total 0.8 mg/dL (0.0-1.0); Blood Urea Nitrogen 20 mg/dL (9-16); Calcium 9.8 mg/dL (8.4-10.2); Carbon Dioxide 28 mmol/L (22-29); Chloride 107 mmol/L (96-108); Cholesterol 207 mg/dL (<200); Estimated Glomerular Filt Rate > 60; Glucose Random 89 mg/dL (60-115); HDL Cholesterol 53 mg/dL (>40); LDL Cholesterol Calculated 130 mg/dL (<100); Sodium 142 mmol/L (135-145); Total Protein 7.9 g/dL (6.5-8.0); Triglycerides 122 mg/dL (<150)
== END 2023-11-26 09:32 | disposition home or self-care (01) ==
LOC: HO.LAB 09:31
PROVIDERS: PCP Internal Medicine; Visit Provider Internal Medicine
DX: Z00.01 Encounter for general adult medical examination with abnormal findings (principal); Z13.31 Encounter for screening for depression; R51.9 Headache, unspecified; I10 Essential (primary) hypertension
CPT/HCPCS: 36415; 80053; 80061; 85025

== ENCOUNTER 2024-07-21 08:19 | Outpatient (REF) | payer OTHER, SELFPAY ==
[2024-07-21 08:40] LABS: MANUAL DIFF FLAG NO
--- OUTSIDE RECORDS SUMMARY | 2024-07-21 08:46 | XMS_ITS | Clinical Summary ---
Author Organization [facility] Address [address] [place] [address] Care Team Providers Care Embalmer Apprentice Name Role Phone Joanne Pozo MD Primary Care Provider Surgical History Surgery Date Site/Laterality Comments OTHER SURGICAL HISTORY PROCEDURE: AR LIG/TRNSXJ FLP TUBE ABDL/VAG APPR UNI/BI HEMORRHOID SURGERY 2016 N/A PROCEDURE: AR INCISION THROMBOSED HEMORRHOID EXTERNAL Medical History Medical History Date Comments Migraine DX:Migraine Chronic low back pain DX:Chronic low back pain Family History Medical History Relation Name Comments Breast cancer Aunt 1 ? further info Other cancer Aunt 2 maternal aunt; ? primary Other cancer Aunt 3 paternal aunt; ? primary Colon cancer Father Diabetes Father Prostate cancer Father Other cancer Maternal Grandfather Uterine cancer Maternal Grandmother Thyroid disease Mother Throat cancer Paternal Grandfather Breast cancer Sister paternal half sister; at age 41 Other: liver cancer Uncle paternal uncle; ? age at dx Relation Name Status Comments Aunt 1 Aunt 2 Aunt 3 Father Maternal Grandfather Maternal Grandmother Mother Alive Paternal Grandfather Paternal Grandmother Sister Uncle Social History Tobacco Use Types Packs/Day Years Used Date Smoking Tobacco: Never Smokeless Tobacco: Never Alcohol Use Standard Drinks/Week Comments No 0 (1 standard drink = 0.6 oz pur e alcohol) Comments Unknown Sex and Gender Information Value Date Recorded Sex Assigned at Not on file Legal Sex Female 12:37 PM EST Gender Identity Not on file Sexual Orientation Not on file Obstetrics History Plan of Treatment Health Maintenance Due Date Last Done Comments DTaP,Tdap,and Td Vaccines (1 - Tdap) 1987 Hepatitis B Vaccines (2 of 3 - Hep B Twinrix 3-dose series) 01/08/2018 12/11/2017 Pneumococcal Vaccine: 50+ Years (1 of 1 - PCV) 2018 Zoster Vaccines (1 of 2) 2018 Colorectal Cancer Screening: Colonoscopy 04/16/2022 Depression Screening 04/16/2022 HIV Screening 04/16/2022 Hepatitis C Screening 04/16/2022 Social Influencers of Health Screening 04/16/2022 Cervical Cancer Screening: Pap Smear 08/08/2023 08/07/2020 COVID-19 Vaccine ( - season) 2024 Influenza Vaccine (#1) 2024 Breast Cancer Screening 08/12/2025 08/13/19 24, 08/08/2022, 08/06/2021, Additional history exists Hepatitis A Vaccines Aged Out 12/11/2017 No long er eligible based on patient's age to complete this topic HIB Vaccines Aged Out No longer eligi ble based on patient's age to complete this topic HPV Vaccines Aged Out No longer eligi ble based on patient's age to complete this topic IPV Vaccines Aged Out No longer eligi ble based on patient's age to complete this topic MMR Vaccines Aged Out No longer eligi ble based on patient's age to complete this topic Meningococcal ACWY Vaccine Aged Out N o longer eligible based on patient's age to complete this topic Meningococcal B Vacine Aged Out No lo nger eligible based on patient's age to complete this topic Pneumococcal Vaccine: Pediatrics (0 to 5 Years) and At-Risk Patients (6 to 64 Years) Aged Out No longer eligible based on patient's age to complete this topic RSV Immunization Patients Under 20 months Aged Out No longer eligible based on patient's age to complete this topic Varicella Vaccines Aged Out No longer eligible based on patient's age to complete this topic Procedures Procedure Name Priority Date/Time Associated Diagnosis Comments JANELL SCREENING DIGITAL Routine 08/13/2023 4:49 PM EDT Encounter for screening mammogram for malignant neoplasm of breast PAP SMEAR Routine 08/07/2020 from Last 3 Months or Most Recently Relevant to Health Maintenance Results * JANELL SCREENING DIGITAL (08/13/2023 4:49 PM EDT) Anatomical Region Laterality Modality Mammography 08/13/2023 1:48 PM EDT Narrative 08/13/2023 4:49 PM EDT [facility] Diagnostic Imaging Department [address] [place] [address] Patient: ??VALDES,LILI ?/Age/Sex: 1970 - 53 - F Unit#: ??[id number] ? Location/Status: ??SPDIMAM/REG CLI ? Mnemonic/Ordering Site: ??DIGSC/SPMAM Ordering Physician: ??NGOC MEDINA MD [facility] Screening Digital - 08/13/23 - 1405 Report Status:Signed EXAM: [facility] Screening Digital EXAM DATE AND TIME: 08/13/2023 2:06 PM HISTORY: ??Screening. COMPARISON: ??08/08/22, 08/06/21, 08/03/20 TECHNIQUE: Bilateral digital breast tomosynthesis was performed in the CC and MLO projections. Computer aided detection with whoplusyou 3D 3.1 was employed. TISSUE DENSITY: b. There are scattered areas of fibroglandular density. FINDINGS: No suspicious masses, grouped microcalcifications, or areas of architectural distortion are seen. The skin and vascularity are unremarkable. IMPRESSION: Stable mammographic appearance of the breasts. ??No evidence of malignancy is seen. A negative mammogram in the presence of a clinically suspicious palpable abnormality does not preclude the possibility of malignancy or alter the indications for biopsy. BI-RADS: ??Category 1: Negative RECOMMENDATION(S): 1: Routine screening mammogram BILATERAL in 1 year. Dictating Physician: ??MARLINE SIERRA MD Electronically Signed by: ??MRALINE SIERRA MD Dic Date/Time: ??08/13/23 1648 Sign date/Time: ??08/13/23 1649 Procedure Note Marline Sierra MD - 01/05/2024 [facility] Diagnostic Imaging Department [address] [place] [address] Patient: JOSE FLILI /Age/Sex: 1970 - 53 - F Unit#: [id number] Location/Status: [facility] CLI Mnemonic/Ordering Site: [facility] Ordering Physician: NGOC MEDINA MD [facility] Screening Digital - 08/13/23 - 1405 Report Status:Signed EXAM: [facility] Screening Digital EXAM DATE AND TIME: 08/13/2023 2:06 PM HISTORY: Screening. COMPARISON: 08/08/22, 08/06/21, 08/03/20 TECHNIQUE: Bilateral digital breast tomosynthesis was performed in the CCand MLO projections. Computer aided detection with whoplusyou 3D 3.1was employed. TISSUE DENSITY: b. There are scattered areas of fibroglandular density. FINDINGS: No suspicious masses, grouped microcalcifications, or areas ofarchitectural distortion are seen. The skin and vascularity are unremarkable. IMPRESSION: Stable mammographic appearance of the breasts. No evidence of malignancyis seen. A negative mammogram in the presence of a clinically suspicious palpable abnormality does not preclude the possibility of malignancy or alter the indications for biopsy. BI-RADS: Category 1: Negative RECOMMENDATION(S): 1: Routine screening mammogram BILATERAL in 1 year. Dictating Physician: MARLINE SIERRA MD Electronically Signed by: MARLINE SIERRA MD Dic Date/Time: 08/13/238 Sign date/Time: 08/13/23 1649 us Ngoc Medina MD IMG BI PROCEDURES Final Resul t * Pap smear (08/07/2020) 08/07/2020 Narrative HISTORICAL TESTING LAB RESULTING AGENCY - 08/10/2020 11:56 AM EDT [id number] THINPREP PAP, IMAGED: NEGATIVE FOR SQUAMOUS INTRAEPITHELIAL LESION AND MALIGNANCY . SHARON LEVI(ASCP) (CASE ELECTRONICALLY SIGNED 08 10 2020) RESULT OF APTIMA HIGH RISK HPV ASSAY: HIGH RISK HPV: ??NEGATIVE (SEROTYPES 16,18,31,33,35,39,45,51,52,56,58,59,66,68) COMPLETED ON 2020-08-08 ADEQUACY: SATISFACTORY ENDOCERVICAL/TRANSFORMATION ZONE COMPONENT PRESENT. SOURCE: THINPREP PAP HPV ANY DX: ??REFLEX 16 AND 18, CERVICAL, IMAGED CLINICAL INFORMATION: HPV ANY DIAGNOSIS. PERIMENOPAUSE, PAP HX NEG [Z12.4, Z01.419] us Jossy Steele CNM LAB CYTOLOGY ORDERABLES Final R esult HISTORICAL TESTING LAB RESULTING AGENCY from Last 3 Months or Most Recently Relevant to Health Maintenance Care Teams Embalmer Apprentice Relationship Specialty Start Date End Date Joanne Pozo MD [address] [place] [address] PCP - General Internal Medicine 08/20/17
--- OUTSIDE RECORDS SUMMARY | 2024-07-21 08:46 | XMS_ITS | Encounter Summary ---
Author Organization [facility] Address [address] [place] [address] Care Team Providers Care Tan Room Supervisor Name Role Phone Unavailable Primary Care Provider Unavailabl e Encounter Details Date Type Department Care Team (Latest Contact Info) Description 03/24/2019 Abstract C CONVERSIONS Dental, Provider, DDS Social History Tobacco Use Types Packs/Day Years Used Date Smoking Tobacco: Never Assessed Comments Unknown Sex and Gender Information Value Date Recorded Sex Assigned at Female 03/18/2022 10:19 AM EDT Legal Sex Female 10:19 AM EDT Gender Identity Female 03/18/2022 10:19 AM EDT Sexual Orientation Straight 03/18/2022 10 :19 AM EDT documented as of this encounter Plan of Treatment Not on file documented as of this encounter Visit Diagnoses Not on filedocumented in this encounter
--- OUTSIDE RECORDS SUMMARY | 2024-07-21 08:46 | XMS_ITS | Clinical Summary ---
Author Organization [facility] Address [address] [place] [address] Care Team Providers Care Metal Grader Name Role Phone Lori Hernandez PA-C Primary Care Provider [phone] Source Comments PLEASE NOTE, if this patient is a minor, it may be UNLAWFUL to discuss sensitive information that is contained in these records (such as FAMILY PLANNING, MENTAL HEALTH or SUBSTANCE ABUSE) with the minor patient's parent or other person without the patient's specific authorization.[facility] Allergies Active Allergy Reactions Criticality Noted Date Comments Penicillins SOB,Rash 12/13/2015 Medications VITAMIN D-3 2,000 unit tabletIndications :Routine lab draw TOME KVNG COYA TODOS LOS SO 4 6 Active senna-docusate (PERICOLACE) 8.6-50 mg per tabletIndications :Constipation, unspecified constipation type Take 1 Tab by mouth once daily as needed for constipation. 60 Tab 3 6 Active polyethylene glycol (GLYCOLAX, MIRALAX) 17 gram packetIndications :Constipation, unspecified constipation type Take 17 g by mouth once daily. Dissolve contents of packet in a glass (8 oz) of water. 30 Each 3 6 Active butalbital-acetam inophen-caffeine (FIORICET) 50-325-40 mg per capsuleIndication s:Tension headache Take 1 Cap by mouth every 4 (four) hours as needed for headaches 15 Cap 0 7 Active SUMAtriptan (IMITREX) 50 mg tabletIndications :Tension headache Take 1 Tab by mouth once as needed for migraine May repeat in 2 hours if no relief. Do not take more than 4 tablets in 24 hours. 20 Tab 1 7 Active orphenadrine (NORFLEX ER) 100 mg 12 hr tabletIndications :Chronic midline low back pain with right-sided sciatica Take 1 Tab by mouth 2 (two) times daily Swallow whole. Do not crush or chew. 60 Tab 3 7 Active diclofenac (VOLTAREN) 1 % gelIndications:Tr ochanteric bursitis of right hip Apply 4 g right lateral hip tid. 100 g 2 7 Active ciprofloxacin-hyd rocortisone (CIPRO HC OTIC) 0.2-1 % otic suspensionIndicat ions:Acute otitis externa of right ear, unspecified type Place 3 Drops into the right ear 2 (two) times daily 10 mL 7 Active ibuprofen (ADVIL,MOTRIN) 800 mg tabletIndications :Acute otitis externa of right ear, unspecified type Take 1 Tab by mouth 3 (three) times daily as needed for pain 60 Tab 7 Active omeprazole (PRILOSEC) [address] capsuleIndication s:Dysphagia, unspecified type TOME KVNG CAPSULA POR V?A ORAL TODOS LOS D? EN LA MA?LEESA BEFORE BREAKFAST 11 7 Active chlorhexidine (PERIDEX) 0.12 % solution SWISH 1/2 OUNCE FOR 30 SECONDS 2 TIMES PER DAY 0 7 Active Active Problems Problem Noted Date Diagnosed Date Head injury due to trauma 03/12/2017 Trochanteric bursitis of right hip 12/09/2016 Trigger finger, right middle finger 12/09/2016 Dysphagia 11/16/2016 Overview (09/30/2017): Barium swallow 11/08/16 @ [facility] = delayed initiation of swallowing with all substances, otherwise normal swallowing mechanism. 11/27/16 - [facility] for difficulty swallowing liquids. Plan: EGD ordered. Nonintractable migraine 09/20/2016 Hemorrhoids 12/13/2015 Constipation 12/13/2015 Vitamin D deficiency 12/13/2015 Immunizations Name Administration Dates Next Due Flu, Preservative Free 03/12/2017 Family History Medical History Relation Name Comments Diabetes Father Osteoporosis Mother Cancer Paternal Grandmother bladder maybe not sure Cancer Sister breast ca at 46 yo Relation Name Status Comments Father Alive Mother Alive Paternal Grandmother Sister Son 1 Alive Son 2 Alive Son 3 Alive Son 4 Alive Social History Tobacco Use Types Packs/Day Years Used Date Smoking Tobacco: Never Alcohol Use Standard Drinks/Week Comments No 0 (1 standard drink = 0.6 oz pur e alcohol) Social Connections Answer Date Recorded Social Connections and Isolation 0 01/05/2019 Financial Resource Strain Answer Date R ecorded Financial Resource Strain 0 2018 Stress Answer Date Recorded Stress 0 01/05/2019 Physical Activity Answer Date Recorded Physical Activity 0 01/05/2019 Food Insecurity Answer Date Recorded Food 0 01/05/2019 Transportation Needs Answer Date Record ed Transportation 0 01/05/2019 Housing Stability Answer Date Recorded Housing 0 01/05/2019 Safety and Environment Answer Date Ulises rded Safety 0 01/05/2019 Utilities Answer Date Recorded Utilities 0 01/05/2019 Employment Answer Date Recorded Employment 0 01/05/2019 Comments No Sex and Gender Information Value Date Recorded Sex Assigned at Female 03/12/2017 9:01 AM PDT Legal Sex Female 6:43 AM PDT Gender Identity Female 03/12/2017 9:01 AM PDT Sexual Orientation Don't know 03/12/2017 9: 01 AM PDT Last Filed Vital Signs Vital Sign Reading Time Taken Comments Blood Pressure 110/80 03/12/2017 9:41 AM EDT Pulse 76 03/12/2017 9:41 AM EDT Temperature 36.6 ??C (97.8 ??F) 03/12/2017 9:41 AM ED T Respiratory Rate 16 03/12/2017 9:41 AM EDT Oxygen Saturation - - Inhaled Oxygen Concentration - - Weight 64.9 kg (143 lb) 03/12/2017 9:41 AM EDT Height 149.9 cm (4' 11 ) 03/12/2017 9:41 AM EDT Body Mass Index 28.88 03/12/2017 9:41 AM EDT Plan of Treatment Not on file Insurance [id number] Member Subscriber Plan / Payer (Ef fective 2015-Present) Name:Ros Valdes Relation to Subscriber:Self Name:Ros Valdes Payer ID:[id number] Type:Indemnity Address: [address] [address] [place] [phone] Care Teams Metal Grader Relationship Specialty Start Date End Date Lori Hernandez PA-C [address] [place] [address] PCP - General Internal Medicine 08/08/17
--- OUTSIDE RECORDS SUMMARY | 2024-07-21 08:46 | XMS_ITS | Clinical Summary ---
Author Organization [facility] Address [address] [place] [address] Care Team Providers Care It Assistant Name Role Phone Unavailable Primary Care Provider Unavailabl e Social History Tobacco Use Types Packs/Day Years Used Date Smoking Tobacco: Never Assessed Comments Unknown Sex and Gender Information Value Date Recorded Sex Assigned at Female 03/18/2022 10:19 AM EDT Legal Sex Female 10:19 AM EDT Gender Identity Female 03/18/2022 10:19 AM EDT Sexual Orientation Straight 03/18/2022 10 :19 AM EDT Plan of Treatment Health Maintenance Due Date Last Done Comments CT Colonography 1970 Colonoscopy 1968 Colorectal Cancer Screening 1968 Depression Screening 1968 FIT DNA/Cologuard 1970 FIT 1970 FOBT 1970 Sigmoidoscopy 1968 Alcohol/Substance Use Screening 1980 Tobacco Screening 1980 DTaP/Tdap/Td Vaccines (1 - Tdap) 1987 Hepatitis B Vaccines (1 of 3 - 19+ 3-dose series) 1987 Pap Smear 1989 Cervical Cancer Screening 1998 HPV/Cotest 1998 Mammogram 2008 Pneumococcal Vaccine: 50+ Ye ars (1 of 1 - PCV) 2018 Zoster Vaccines (1 of 2) 2018 COVID-19 Vaccine (2023-2 5 season) 2024 Influenza Vaccine (#1) 2024 RSV Patients and Pa tients Aged 60 years or older (1 - 1-dose 75+ series) 2043 HIB Vaccines Aged Out No longer eligi ble based on patient's age to complete this topic HPV Vaccines Aged Out No longer eligi ble based on patient's age to complete this topic Hepatitis A Vaccines Aged Out No long er eligible based on patient's age to complete this topic IPV Vaccines Aged Out No longer eligi ble based on patient's age to complete this topic Meningococcal Vaccine Aged Out No lisa mahendra eligible based on patient's age to complete this topic Pneumococcal Vaccine: Pediat rics (0 to 5 Years) and At-Risk Patients (6 to 49) Years) Aged Out No longer eligible b ased on patient's age to complete this topic RSV under 20 months Aged Out No longe r eligible based on patient's age to complete this topic Rotavirus Vaccines Aged Out No longer eligible based on patient's age to complete this topic
--- OUTSIDE RECORDS SUMMARY | 2024-07-21 08:46 | XMS_ITS | Encounter Summary ---
Author Organization [facility] Address [address] [place] [address] Care Team Providers Care Resource Economist Name Role Phone Unavailable Primary Care Provider Unavailabl e Encounter Details Date Type Department Care Team (Latest Contact Info) Description 11/30/2020 Abstract C CONVERSIONS Dental, Provider, DDS Social [...]
[2024-07-21 09:01] LABS: Basophils Absolute Auto 0.1 X10*3/uL (0.0-0.2); Eosinophils Absolute Auto 0.1 X10*3/uL (0.0-0.4); Eosinophils Percent Auto 2.1 % (0-4); Hematocrit 42.6 % (37.0-47.0); Hemoglobin 14.2 g/dl (12.0-16.0); Imm Gran Abs Auto 0.01 X10*3/uL (0.00-0.03); Imm Gran Pct Auto 0.2 % (0.0-0.4); Lymphocytes Absolute Auto 1.3 X10*3/uL (1.2-4.9); Lymphocytes Percent Auto 24.2 % (20-40); Mean Corpuscular HGB Conc 33.3 g/dl (31.0-35.0); Mean Corpuscular Hemoglobin 29.5 pg (27.0-33.0); Mean Corpuscular Volume 88.4 fL (80.0-98.0); Mean Platelet Volume 10.3 fL (9.4-12.3); Monocytes Absolute Auto 0.3 X10*3/uL (0.1-1.2); Monocytes Percent Auto 5.4 % (2-11); Neutrophils Absolute Auto 3.5 x10*3/uL (2.0-8.3); Neutrophils Percent Auto 67.1 % (45-73); Platelet Count 418 X10*3/uL (160-400); Red Blood Count 4.82 X10*6/uL (4.20-5.50); Red Cell Distribution Width 13.1 % (11.0-16.0); White Blood Count 5.2 X10*3/uL (4.8-10.8)
[2024-07-21 09:23] LABS: Alanine Aminotransferase 23 U/L (0-31); Albumin Level 4.5 g/dL (3.5-5.0); Alkaline Phosphatase 91 U/L (39-117); Anion Gap 11 (12-20); Aspartate Amino Transferase 19 U/L (5-31); Bilirubin Total 0.5 mg/dL (0.0-1.0); Blood Urea Nitrogen 18 mg/dL (9-16); Calcium 9.9 mg/dL (8.4-10.2); Carbon Dioxide 26 mmol/L (22-29); Chloride 109 mmol/L (96-108); Cholesterol 217 mg/dL (<200); Estimated Glomerular Filt Rate > 60; Glucose Random 90 mg/dL (60-115); HDL Cholesterol 62 mg/dL (>40); LDL Cholesterol Calculated 141 mg/dL (<100); Potassium 4.3 mmol/L (3.3-5.1); Sodium 142 mmol/L (135-145); Total Protein 8.7 g/dL (6.5-8.0); Triglycerides 70 mg/dL (<150)
== END 2024-07-21 08:20 | disposition home or self-care (01) ==
LOC: HO.LAB 08:19
PROVIDERS: PCP Internal Medicine; Visit Provider Internal Medicine
DX: E78.00 Pure hypercholesterolemia, unspecified (principal); G43.109 Migraine with aura, not intractable, without status migrainosus; I10 Essential (primary) hypertension; Z68.27 Body mass index [BMI] 27.0-27.9, adult
CPT/HCPCS: 36415; 80053; 80061; 85025

== ENCOUNTER 2025-02-10 17:01 | Emergency (ER) | payer OTHER, SELFPAY ==
--- NOTE | ~2025-02-10 | CT_ITS ---
CLINICAL HISTORY: headache CT head without contrast Comparison: None provided Findings: No intra-axial mass, midline shift, hydrocephalus, or acute hemorrhage. No significant atrophy-like change or white matter disease. There is no sinus or mastoid fluid. The orbits are within normal limits. No skull fracture. IMPRESSION: 1. No acute intracranial findings. This document has been electronically signed by: Ericka Sotelo MD on 02/10/2025 19:07:53
[2025-02-10 17:25] VITALS: BP 142/65; PULSE 74; RESP 18; TEMP 36.6; O2SAT 97; BMI 30.1
--- NOTE | 2025-02-10 17:32 | ED.HA ---
HPI - Headache General Chief Complaint: Headache Stated Complaint: headache Time Seen by Provider: 02/10/25 20:35 Source: patient Mode of arrival: ambulatory Limitations: language barrier History of Present Illness ED Provider: Dr. Martinez HPI Narrative: This is a 54-year-old female history of headache, migraine presented hospital today for evaluation of headache. Patient stated that her headache is on the right parietal scalp. She stated that she has extra sensitive in the area. She is also associated this with some neck pain. She states shoots up to her head. No unilateral weakness. No speech difficulty. Patient does have history of migraine. She stated this is not feel like her migraine in the past. Related Data Home Medications ?Medication ?Instructions ?Recorded ?Confirmed cholecalciferol (vitamin D3) 50 50 mcg PO DAILY 03/13/20 11/27/23 mcg (2,000 unit) tablet Previous Rx's ?Medication ?Instructions ?Recorded diclofenac sodium 1 % topical gel 2 g topical QID PRN joint pain 06/05/21 #100 grams mirabegron 50 mg tablet,extended 50 mg PO DAILY #90 tabs 06/16/23 release 24 hr (Myrbetriq) bisacodyl 5 mg tablet,delayed 10 mg (2 x 5 mg) PO ONCE colon 07/03/23 release (Dulcolax (bisacodyl)) prep 5 days #10 tabs peg 3350-electrolytes 236 240 ml PO Q10M 1 day #4,000 mL 07/03/23 gram-22.74 gram-6.74 gram-5.86 gram solution (Golytely) sennosides 8.6 mg-docusate sodium 1 tab-cap PO BEDTIME 60 days #60 07/03/23 50 mg tablet (Senna with Docusate tabs Sodium) valacyclovir 1 gram tablet 1,000 mg PO TID 7 days #21 tabs 11/10/23 cyclobenzaprine 5 mg tablet 5 mg PO TID PRN muscle spasm #20 02/10/25 tabs Allergies Allergy/AdvReac Type Severity Reaction Status Date / Time penicillin V Allergy Severe anaphylaxis Verified 02/10/25 17:29 Review of Systems Review of Systems: Pertinent review of systems as mentioned in HPI. All other system otherwise negative. [facility] Past Medical History [facility] Narrative: Medical history as mentioned in [facility] Medical History (Updated 02/10/25 @ 23:57 by Torie Martinez DO) GERD (gastroesophageal reflux disease) Chronic right hip pain Migraine Shoulder pain Lumbago Numbness and tingling in right hand Anosmia Hand pain, right Costochondritis Vitamin D deficiency Goiter Surgical History (Updated 11/27/23 @ 12:32 by Myesha Appiah RN) Hx of flexible sigmoidoscopy H/O colonoscopy History of esophagogastroduodenoscopy (EGD) Hx of tubal ligation Family History Family History Father No problems noted. Mother Thyroid disease Sister AIDS (acquired immune deficiency syndrome) Sister Breast cancer Social History Social History Household Members: Spouse and Children Housing: Apartment Alcohol intake: never Patient Tobacco Use Status: Never used Tobacco Smoked in Last 30 Days: No e-Cigarette/Vaping Use: Never Used Use of substances other than those prescribed or required for medical reasons: No Advance Directives: No Advance Directives Information Provided: No Do you have a plan to hurt others: No Plan service: No Current occupational status: employed Sexual orientation: Straight/Heterosexual Gender identity: Female Cognitive needs: No Hearing needs: No Vision needs: Yes Physical Exam Exam: Exam: General: Pleasant, no distress, interacting appropriately Head: Normacephalic, atraumatic ENT: oral mucosa moist, neck supple, no tracheal deviation, spasm of the right neck appreciated on exam. Cardiovascular: regular rate, regular rhythm, no murmurs, rubbing, gallops Respiratory: CTAB, no wheeze, rales, rhonchi Extremities: No limb pain or swelling, no calf tenderness Neurological: Awake and alert, no facial droop noted Skin: Warm and dry Psychiatric: Appropriate mood and thoughts Vital Signs: Vital Signs: Last Vital Signs Temp 97.9 F 02/10/25 22:24 Pulse 72 02/10/25 22:24 Resp 18 02/10/25 17:25 BP 112/47 L 02/10/25 22:24 Pulse Ox 97 02/10/25 22:24 O2 Del Method Room Air 02/10/25 22:24 BMI result Body Mass Index 30.1 Course Course Course Narrative: This is an RME: Additional HPI, ROS, PE not included below will be deferred to primary provider. RME assessment and note performed by: Triny Ferrara PA-C This is a [id number]-female who presents to the ER with a complaint of migraines. Reports hed trauma 1 year ago, has had sensitivity to area since. Reports this pain is different than her typical migraines. Neurologically intact. Plan: CT head, basic labs, further ER eval needed Medications Administered Discontinued Medications Generic Name Dose Route Start Last Admin Trade Name Jovanna PRN Reason Stop Dose Admin Diazepam 5 mg 02/10/25 21:32 02/10/25 21:59 Diazepam 5 Mg Tablet PO 02/10/25 21:33 5 mg ONCE ONE Administration Magnesium Sulfate 2 gm in 50 mls @ 50 mls/hr 02/10/25 21:32 02/10/25 23:48 Magnesium Sulfate/H2o IV 02/10/25 22:31 Infused ONCE ONE Infusion Sodium Chloride 1,000 mls @ 999 mls/hr 02/10/25 21:45 02/10/25 23:48 Ns IV 02/10/25 22:45 Infused .Q1H1M CAMPOS Infusion Metoclopramide HCl 5 mg 02/10/25 21:32 02/10/25 21:59 Metoclopramide Hcl 10 Mg/2 Ml Vial IVPUSH 02/10/25 21:33 5 mg ONCE ONE Administration Medical Decision Making Medical Decision Making [facility] Narrative: This is a 54-year-old female presented hospital today for headache on the right parietal area. I suspect patient likely has a tension headache. We will give her 5 mg p.o. Valium for muscle relaxer. We will plan to start her on IV fluid, IV magnesium and IV Reglan. Patient has CT head performed which was negative for any signs of intracranial abnormality. Patient's lab work is unremarkable. On reassessment patient headache has improved. She no longer has the right-sided neck spasm. Patient states she is feeling better at this time. Patient will be discharged with a course of Flexeril take as needed for her muscle spasm. Patient is agreement with this plan. Patient will be discharged home. She has tension headache. Differential Diagnosis Differential Diagnoses: The differential diagnosis associated with the presentation includes Cluster headache, migraine headache, tension headache Lab Data [facility] Lab Attestation statement: I reviewed the patient's lab results. 02/10/25 17:50 02/10/25 17:50 Labs: Lab Results 02/10/25 Range/Units 17:50 WBC 7.9 (4.8-10.8) X10*3/uL RBC 4.33 (4.20-5.50) X10*6/uL Hgb 13.0 (12.0-16.0) g/dl Hct 37.9 (37.0-47.0) % MCV 87.5 (80.0-98.0) fL MCH 30.0 (27.0-33.0) pg MCHC 34.3 (31.0-35.0) g/dl RDW 12.9 (11.0-16.0) % Plt Count 356 (160-400) X10*3/uL MPV 9.8 (9.4-12.3) fL Immature Gran % (Auto) 0.3 (0.0-0.4) % Neut % (Auto) 61.0 (45-73) % Lymph % (Auto) 30.1 (20-40) % [place] % (Auto) 6.1 (2-11) % Eos % (Auto) 1.9 (0-4) % Baso % (Auto) 0.6 (0-2) % Lymph # (Auto) 2.4 (1.2-4.9) X10*3/uL [place] # (Auto) 0.5 (0.1-1.2) X10*3/uL Eos # (Auto) 0.2 (0.0-0.4) X10*3/uL Baso # (Auto) 0.1 (0.0-0.2) X10*3/uL Abs Immat Gran (auto) 0.02 (0.00-0.03) X10*3/uL Absolute Neuts (auto) 4.8 (2.0-8.3) x10*3/uL Absolute Nucleated RBC 0.000 (0.0-0.012) X10*3/uL Nucleated RBC % (auto) 0.0 (0.0-0.2) /100WBC Sodium 145 (135-145) mmol/L Potassium 3.8 (3.3-5.1) mmol/L Chloride 108 (96-108) mmol/L Carbon Dioxide 29 (22-29) mmol/L Anion Gap 12 (12-20) BUN 16 (9-16) mg/dL Creatinine 0.86 (0.5-1.4) mg/dL Estim Creat Clear Calc 61.0 Estimated GFR > 60 Random Glucose 82 (60-115) mg/dL Calcium 9.5 (8.4-10.2) mg/dL Magnesium 2.2 (1.6-2.6) mg/dL Total Bilirubin 0.2 (0.0-1.0) mg/dL Direct Bilirubin < 0.2 (0.0-0.5) mg/dL AST 19 (5-31) U/L ALT 29 (0-31) U/L Alkaline Phosphatase 97 (39-117) U/L Total Protein 7.6 (6.5-8.0) g/dL Albumin 4.4 (3.5-5.0) g/dL Independent Interpretation I performed an independent interpretation of an: CT Scan Radiology Impression Discussion of test interpretation with radiology: I have reviewed the radiologist's reading. Discharge Plan Discharge Clinical Impression: Headache, tension-type Qualifiers: Headache chronicity pattern: unspecified pattern Intractability: not intractable Qualified Code(s): G44.209 - Tension-type headache, unspecified, not intractable Patient Disposition: Home, Self-Care Instructions: Tension Headache (ED) Prescriptions: New cyclobenzaprine 5 mg tablet 5 mg PO TID PRN (Reason: muscle spasm) Qty: 20 0RF No Action cholecalciferol (vitamin D3) 50 mcg (2,000 unit) tablet 50 mcg PO DAILY diclofenac sodium 1 % gel 2 g topical QID PRN (Reason: joint pain) Qty: 100 0RF Rx Instructions: apply to right shoulder ; for hand includes palm/fingers/back of hand Myrbetriq 50 mg tablet extended release 24 hr 50 mg PO DAILY Qty: 90 1RF bisacodyl [Dulcolax (bisacodyl)] 5 mg tablet,delayed release (DR/EC) 10 mg PO ONCE 5 Days Qty: 10 0RF Rx Instructions: Take 2 tablets at 12 pm the day before colonoscopy peg 3350-electrolytes [Golytely] 236-22.74-6.74 -5.86 gram recon soln 240 ml PO Q10M 1 Days Qty: 4000 0RF Rx Instructions: until fecal effluent is clear; do not exceed a total volume [id number] mL Please follow instructions sennosides-docusate sodium [Senna with Docusate Sodium] 8.6-50 mg tablet 1 tab-cap PO BEDTIME 60 Days Qty: 60 2RF Rx Instructions: Please take every day at bedtime valacyclovir 1 gram tablet 1,000 mg PO TID 7 Days Qty: 21 0RF Stand Alone Forms: Work/School Release Print Language: Korean
[2025-02-10 17:53] LABS: MANUAL DIFF FLAG NO
[2025-02-10 18:02] LABS: Hematocrit 37.9 % (37.0-47.0); Hemoglobin 13.0 g/dl (12.0-16.0); Imm Gran Abs Auto 0.02 X10*3/uL (0.00-0.03); Imm Gran Pct Auto 0.3 % (0.0-0.4); Lymphocytes Absolute Auto 2.4 X10*3/uL (1.2-4.9); Mean Corpuscular HGB Conc 34.3 g/dl (31.0-35.0); Mean Corpuscular Hemoglobin 30.0 pg (27.0-33.0); Mean Corpuscular Volume 87.5 fL (80.0-98.0); NRBC Abs Auto 0.000 X10*3/uL (0.0-0.012); NRBC Pct Auto 0.0 /100WBC (0.0-0.2); Platelet Count 356 X10*3/uL (160-400); Red Blood Count 4.33 X10*6/uL (4.20-5.50); White Blood Count 7.9 X10*3/uL (4.8-10.8)
[2025-02-10 18:11] LABS: Alanine Aminotransferase 29 U/L (0-31); Albumin Level 4.4 g/dL (3.5-5.0); Alkaline Phosphatase 97 U/L (39-117); Anion Gap 12 (12-20); Aspartate Amino Transferase 19 U/L (5-31); Blood Urea Nitrogen 16 mg/dL (9-16); Calcium 9.5 mg/dL (8.4-10.2); Carbon Dioxide 29 mmol/L (22-29); Chloride 108 mmol/L (96-108); Creatinine Clr Calc Pharmacy 61.0; Estimated Glomerular Filt Rate > 60; Magnesium 2.2 mg/dL (1.6-2.6); Potassium 3.8 mmol/L (3.3-5.1); Sodium 145 mmol/L (135-145); Total Protein 7.6 g/dL (6.5-8.0)
[2025-02-10 20:40] VITALS: BP 126/66; PULSE 67; TEMP 36.6; O2SAT 98
--- NOTE | 2025-02-10 20:40 | MHC.EDTECH ---
@0 ice pack given to patient for headache.
--- NOTE | 2025-02-10 21:07 | PC.NURSE ---
pt reports having weird sensation in her head, pt reports it not a migraine, it feels different than anything she had before, it been lasting for 2 weeks, pt is a&o, no sob or chest pain, pt able to answer question appropriately.
[2025-02-10] MEDS: Magnesium Sulfate/H2O 2 GM/50 ML PIGGYBACK IV (21:59)
[2025-02-10 22:24] VITALS: BP 112/47; PULSE 72; TEMP 36.6; O2SAT 97
--- NOTE | 2025-02-11 00:25 | PC.NURSE ---
Iv removed, reviewed discharge instructions, pt verbalized understanding, no sign of distress, pt ambulated with a steady gait.
[2025-02-11 00:26] VITALS: BP 112/50; PULSE 74; RESP 20; TEMP 36.4; O2SAT 98
== END 2025-02-11 00:27 | disposition home or self-care (01) ==
PROVIDERS: Physician Assistant Medical; Emergency Provider Student in an Organized Health Care Education/Training Program; PCP Internal Medicine
DX: G44.209 Tension-type headache, unspecified, not intractable (principal); M54.2 Cervicalgia; Z79.899 Other long term (current) drug therapy
CPT/HCPCS: 36415; 70450; 80048; 80076; 83735; 85025; 96365; 96375; 99284; J2765; J3475

== ENCOUNTER → 2025-02-10 17:33 | Outpatient (BNV) | payer OTHER, SELFPAY | PROVIDERS: PCP Internal Medicine; Visit Provider Radiology Diagnostic Radiology | DX: R51.9 Headache, unspecified (principal) | CPT/HCPCS: 70450 ==

== ENCOUNTER 2025-04-27 08:57 | Outpatient (REF) | payer OTHER, SELFPAY | END 2025-04-27 08:58 | disposition home or self-care (01) | LOC: HO.LAB 08:57 | PROVIDERS: PCP Internal Medicine; Visit Provider Internal Medicine | DX: E04.1 Nontoxic single thyroid nodule (principal); E78.00 Pure hypercholesterolemia, unspecified; G43.119 Migraine with aura, intractable, without status migrainosus; Z68.30 Body mass index [BMI] 30.0-30.9, adult | CPT/HCPCS: 36415; 84443 ==